=== PATIENT | female | born 1935 | race Asian ===

== ENCOUNTER → 2017-10-10 13:49 | Outpatient (CLI) | payer MEDICARE, SELFPAY ==
[2017-10-10 15:10] LABS: BUN Creatinine Ratio 28.3 (6-22); Blood Urea Nitrogen 34 mg/dL (7-17); Calcium 9.8 mg/dL (8.4-10.2); Carbon Dioxide 23 mmol/L (22-32); Chloride 107 mmol/L (98-107); Estimated Glomerular Filt Rate 43.1 mL/min (>60); Glucose 75 mg/dL (80-110); HEMOLYSIS 47 (0-50); Potassium 4.7 mmol/L (3.4-5.1); Sodium 142 mmol/L (137-145)
[2017-10-14 04:17] LABS: QuantiFERON TB Positive (Negative)
== END ==
PROVIDERS: Visit Provider Internal Medicine
DX: R63.4 Abnormal weight loss (principal); N18.3 Chronic kidney disease, stage 3 (moderate)
CPT/HCPCS: 36415; 80048; 86480

== ENCOUNTER → 2017-10-14 16:50 | Outpatient (CLI) | payer MEDICARE, SELFPAY ==
--- NOTE | 2017-10-14 16:56 | DI.RAD.S_ITS ---
PROCEDURE: XR CHEST 2V INDICATIONS: weight loss TECHNIQUE: 2 views of the chest were acquired. COMPARISON: [facility], , CHEST 1 VIEW, 09/05/2012, 9:33. FINDINGS: Surgical changes and devices: Cardiac pacemaking device and dual chamber leads normal. Lungs and pleura: No pleural effusions or pneumothorax. Lungs are free of mass or pneumonia there is chronic interstitial prominence. Mediastinum: Mediastinal contours are normal. Heart size is normal. Bones and chest wall: No suspicious bony abnormalities. Soft tissues appear unremarkable. IMPRESSION: No pneumonia or mass seen, source of weight loss is not found. Pacemaker and leads normal. Dictated by: Johnson Sumner M.D. on 10/14/2017 at 17:43 Approved by: Johnson Sumner M.D. on 10/14/2017 at 17:44
== END ==
PROVIDERS: PCP Family Medicine; Visit Provider Internal Medicine
DX: R63.4 Abnormal weight loss (principal); Z95.0 Presence of cardiac pacemaker
CPT/HCPCS: 71046

== ENCOUNTER → 2018-01-09 10:02 | Outpatient (CLI) | payer MEDICARE, SELFPAY ==
[2018-01-09 11:06] LABS: Lithium 0.8 mmol/L (0.6-1.2)
[2018-01-09 11:11] LABS: BUN Creatinine Ratio 24.7 (6-22); Blood Urea Nitrogen 37 mg/dL (7-17); Calcium 10.2 mg/dL (8.4-10.2); Carbon Dioxide 26 mmol/L (22-32); Chloride 110 mmol/L (98-107); Estimated Glomerular Filt Rate 33.3 mL/min (>60); Glucose 91 mg/dL (80-110); HEMOLYSIS < 15 (0-50); Potassium 5.1 mmol/L (3.4-5.1); Sodium 146 mmol/L (137-145)
== END ==
PROVIDERS: PCP Family Medicine; Visit Provider Internal Medicine
DX: F31.9 Bipolar disorder, unspecified (principal); N18.3 Chronic kidney disease, stage 3 (moderate); R63.4 Abnormal weight loss
CPT/HCPCS: 36415; 80048; 80178

== ENCOUNTER → 2018-01-16 11:40 | Outpatient (CLI) | payer MEDICARE, SELFPAY ==
[2018-01-16 12:32] LABS: Bacteria Urine None Seen
[2018-01-16 12:42] LABS: Appearance Urine UA CLEAR; Bilirubin Urine UA NEGATIVE (NEGATIVE); Color Urine UA YELLOW; Glucose Urine UA NEGATIVE (Normal); Ketones Urine UA NEGATIVE (NEGATIVE); Leukocyte Esterase Urine UA NEGATIVE (NEGATIVE); Nitrite Urine UA Negative (Negative); Occult Blood Urine UA 1+ (Negative); Protein Urine UA NEGATIVE (Negative); Urobilinogen Urine UA 0.2 E.U./dL (0.2)
[2018-01-16 12:52] LABS: Culture Indicated Urine Cult Not Indicated; RBC Urine 1-5/HPF (0-5/HPF); Squamous Epithelial Cell Urine 0-1 /HPF; WBC Urine 0-1/HPF (0-5/HPF)
[2018-01-16 13:12] LABS: BUN Creatinine Ratio 24.3 (6-22); Blood Urea Nitrogen 34 mg/dL (7-17); Carbon Dioxide 29 mmol/L (22-32); Chloride 107 mmol/L (98-107); Estimated Glomerular Filt Rate 36.1 mL/min (>60); Glucose 93 mg/dL (80-110); HEMOLYSIS < 15 (0-50); Potassium 4.6 mmol/L (3.4-5.1); Sodium 144 mmol/L (137-145)
[2018-01-16 16:09] LABS: Creatinine Urine Random 81.7 mg/dL
[2018-01-16 16:13] LABS: Microalbumin Urine Random 0.9 mg/dL (0-1.6)
== END ==
PROVIDERS: PCP Family Medicine; Visit Provider Internal Medicine
DX: N28.9 Disorder of kidney and ureter, unspecified (principal)
CPT/HCPCS: 36415; 80048; 81001; 82043; 82570

== ENCOUNTER → 2018-01-22 08:03 | Outpatient (CLI) | payer MEDICARE, SELFPAY ==
--- NOTE | 2018-01-22 08:05 | DI.US.S_ITS ---
PROCEDURE: US RENAL COMPLETE INDICATIONS: DECREASED KIDNEY FUNCTION TECHNIQUE: Real-time scanning was performed of the kidneys and bladder, with image documentation. COMPARISON: None. FINDINGS: Kidneys: Kidneys are normal in size. Right kidney measures 8.6 cm long; left kidney measures 9.7 cm long. Right renal cortical thickness is 1.4 cm; left renal cortical thickness is 1.6 cm. Renal cortical echotexture is normal. No hydronephrosis or nephrolithiasis. No suspicious solid mass lesions. At the superior pole of the right kidney, there is a 3.1 cm simple appearing cyst seen. Bladder: Pre-void bladder volume is 216 mL. Post-void residual is 0 mL. Pre-void images demonstrate no intraluminal masses or stones. On pre-void images, neither of the ureteral jets are noted with color Doppler interrogation. (Of note, ureteral jets may not be detectable in up to 25% of cases due to insufficient differences in specific gravity between ureteral and bladder urine). Miscellaneous: No free pelvic fluid. IMPRESSION: Unremarkable renal ultrasound, without hydronephrosis. Incidental note is made of 3.1 centimeter cyst at the superior pole the right kidney. Dictated by: Cisco Don M.D. on 01/22/2018 at 8:30 Approved by: Cisco Don M.D. on 01/22/2018 at 8:32
== END ==
PROVIDERS: PCP Family Medicine; Visit Provider Internal Medicine
DX: N28.1 Cyst of kidney, acquired (principal)
CPT/HCPCS: 76770

== ENCOUNTER → 2018-02-03 15:05 | Outpatient (CLI) | payer MEDICARE, SELFPAY ==
[2018-02-03 17:56] LABS: INR 2.3 (0.9-1.3); Prothrombin Time 24.7 SECONDS (10.1-12.7)
== END ==
PROVIDERS: PCP Family Medicine; Visit Provider Family Medicine
DX: I48.2 Chronic atrial fibrillation (principal)
CPT/HCPCS: 36415; 85610

== ENCOUNTER 2018-06-08 08:38 | Inpatient (IN) | payer MEDICARE, SELFPAY ==
[2018-06-08] VITALS (11 sets, daily range): BP systolic 95–123; BP diastolic 55–85; PULSE 60–69; RESP 11–21; TEMP 36.8–37.6; O2SAT 93–100; BMI 17.4
--- NOTE | 2018-06-08 08:45 | DI.RAD.S_ITS ---
PROCEDURE: XR CHEST 1V INDICATIONS: confusion TECHNIQUE: One view of the chest was acquired. COMPARISON: [facility], CR, XR CHEST 2V, 10/14/2017, 16:36. FINDINGS: Surgical changes and devices: Pacemaker. Lungs and pleura: Lungs are clear. No pleural effusions or pneumothorax. Mediastinum: Mediastinal contours appear normal. Heart size is normal. Bones and chest wall: No suspicious bony lesions. Overlying soft tissues appear unremarkable. IMPRESSION: No acute pulmonary process. Dictated by: Sherin Stearns M.D. on 06/08/2018 at 9:30 Approved by: Sherin Stearns M.D. on 06/08/2018 at 9:30
--- NOTE | 2018-06-08 08:45 | DI.CT.S_ITS ---
PROCEDURE: CT HEAD/BRAIN WO CON INDICATIONS: decreased responsivness on coumadin TECHNIQUE: Noncontrast 4.5 mm thick angled axial sections acquired from the foramen magnum to the vertex, with coronal and sagittal reformats. For radiation dose reduction, the following was used: automated exposure control, adjustment of mA and/or kV according to patient size. COMPARISON: [facility], CT, HEAD WITHOUT CONTRAST, 07/18/2017, 8:51. FINDINGS: Image quality: Excellent. CSF spaces: Basal cisterns are patent. No extra-axial fluid collections. The ventricles are symmetric in size and shape. Brain: No intracranial bleeds or masses. There is cerebral volume loss for age, with resultant ventricular and sulcal prominence. There are periventricular and deep white matter chronic small vessel ischemic changes. There is intracranial internal carotid artery atherosclerosis. Skull and face: Calvarium and visualized facial bones appear intact, without suspicious lesions. Sinuses: Visualized sinuses demonstrate minimal scattered ethmoid and maxillary mucosal thickening. IMPRESSION: 1. No acute intracranial process. 2. Moderate atrophy and chronic microvascular ischemic changes. Dictated by: Sherin Stearns M.D. on 06/08/2018 at 9:25 Approved by: Sherin Stearns M.D. on 06/08/2018 at 9:27
--- NOTE | 2018-06-08 08:53 | ED.NEUROSD ---
HPI - Neuro Symptoms/Deficit General Chief Complaint: Neuro Symptoms/Deficit Stated Complaint: thinks stroke Time Seen by Provider: 06/08/18 08:42 Source: family Mode of arrival: wheelchair Limitations: altered mental status History of Present Illness HPI Narrative: Patient is an 83-year-old female is found with decreased responsiveness. she has past medical history of pacemaker on Coumadin and bipolar on lithium both have been stable and controlled. She was last seen normal at 9:00 p.m.. This morning she was found staring at the sink with running water. His she would has been very rigid is no facial drooping she is not responsive. she normally is able to help get herself dressed, able to communicate but does need some assistance with daily living activities. She has not had fever. According to family she was normal yesterday. 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 According to daughter at last time this happened it was a UTI and took some time to find it. Family also notes that she is typically a very clean and tidy they did find stool in the microwave and all over the room very abnormal for her. On Anticoagulants: No Related Data Home Medications Medication Instructions Recorded Confirmed metoprolol succinate ER 25 mg 25 mg PO DAILY 10/09/17 06/08/18 tablet,extended release 24 hr Previous Rx's Medication Instructions Recorded warfarin 2 mg tablet 2 mg PO QWEEK #90 tab 10/14/17 montelukast 10 mg tablet 10 mg PO QPM #90 tab 01/09/18 lithium carbonate 300 mg capsule 300 mg PO Q DAY #90 cap 05/26/18 Allergies Allergy/AdvReac Type Severity Reaction Status Date / Time aspirin [ASPIRIN] Allergy Unknown Verified 06/08/18 08:50 Penicillins [PENICILLINS] Allergy Unknown UNKNOWN Verified 06/08/18 08:50 Review of Systems Review of Systems ROS Unobtainable: Unobtainable due to medical condition [facility] Medical History Adverse drug effect (Chronic) Ankle pain (Chronic) Asthma (Chronic ~1975) Atrial fibrillation (Chronic 2012) Chronic cough (Chronic) Hayfever (Chronic ~1975) Hearing loss (Chronic ~1989) History of recurrent ear infection (Chronic) Hyperlipidemia (Chronic) Osteoporosis (Chronic) Pacemaker (Chronic 2012) Recurrent sinusitis (Chronic) Tinnitus (Chronic) Bipolar disorder (Resolved 1983) Cataract (Resolved 2013) Chicken pox (Resolved) Measles (Resolved) Ruptured tympanic membrane (Resolved) Stroke (Resolved 2012) Surgical History Anesthesia (Resolved) History of cataract removal with insertion of prosthetic lens (Resolved 2013) History of endoscopic sinus surgery (Resolved 1989) History of nasal polypectomy (Resolved 1982) History of right mastoidectomy (Resolved 1996) Presence of cardiac pacemaker (Resolved 2012) Status post myringotomy with insertion of tube (Resolved 2008) Family History Brother Age: 78 Heart disease Mother Stomach disease Heart problem Sister Age: 86 A-fib Sister Age: 84 A-fib Father Peritonitis Social History Smoking Status: Never smoker Family History Brother Age: 78 Heart disease Mother Stomach disease Heart problem Sister Age: 86 A-fib Sister Age: 84 A-fib Father Peritonitis Social History household members: family and children Smoking Status: Never smoker alcohol intake: never Exam Initial Vital Signs Initial Vital Signs: Vital Signs Temperature 99.1 F 06/08/18 08:38 Pulse Rate 60 06/08/18 08:38 Respiratory Rate 11 L 06/08/18 08:38 Blood Pressure 111/61 06/08/18 08:38 Pulse Oximetry 97 06/08/18 08:38 Const General: cooperative and frail appearing Orientation: alert HENMT Head: normal to inspection Eyes General: appearance normal, both eyes and all related structures Neck Neck: normal visual inspection and full ROM Chest Chest: normal inspection of the chest Resp Effort & Inspection: normal respiratory effort Auscultation: clear to auscultation bilaterally, no rales, no rhonchi and no wheezes Cardio Rate: regular rate Heart Sounds: S1 normal and S2 normal GI Palpation: soft, No firm and No guarding Auscultation: normal bowel sounds Skin General: no rashes or lesions noted, No jaundice and No petechiae Neuro General: alert and awake Cranial Nerves: CN's II-XI intact bilaterally Cognition: abnormal cognition ( not following commands) Speech: abnormal speech ( not speaking) Other: both legs drift to gurney Scores GCS [place] coma scale eye opening: Spontaneous [place]i coma scale verbal response: Sounds [place]i coma scale motor response: Normal flexion [place] coma scale total score: 10 Course Orders Ordered: ED Orders 06/08/18 08:43 EKG-12 Lead Stat 06/08/18 08:45 CT head/brain wo con Stat XR chest 1V Stat 06/08/18 09:09 Influenza A and B by PCR Rapid Stat 06/08/18 09:20 Complete Blood Count AUTO DIFF Stat Comprehensive Metabolic Panel Stat Lactate (Lactic Acid) Stat [place] Stat Partial Thromboplastin Time Stat Prolactin Stat Prothrombin Time INR Stat Thyroid Stimulating Hormone Stat Troponin & CK Cardiac Panel Stat 06/08/18 09:50 Blood Culture Stat 06/08/18 10:46 Urinalysis and Microscopic Stat Urine Culture Stat Sodium Chloride (Normal Saline 0.9%) 1,000 mls @ 150 mls/hr IV CONT CLARA Last Infusion: 06/08/18 11:40 Dose: 150 mls/hr Admin: 06/08/18 09:29 Dose: 150 mls/hr Vital Signs - 8 hr 06/08/18 08:38 06/08/18 09:28 06/08/18 10:30 Temperature 99.1 F Pulse Rate 60 60 60 Respiratory Rate 11 L 16 21 Blood Pressure 111/61 Blood Pressure [Left Arm] 110/55 L 114/55 L Pulse Oximetry 97 95 98 06/08/18 11:15 06/08/18 11:30 Temperature 98.3 F Pulse Rate 66 67 Respiratory Rate 16 12 Blood Pressure 122/85 Blood Pressure [Left Arm] 118/58 L Pulse Oximetry 97 100 MDM - Neuro Symptoms/Deficit Lab Data Attestation: I reviewed the patient's lab results. Result diagrams: 06/08/18 09:20 06/08/18 09:20 Lab Results 06/08/18 06/08/18 06/08/18 Range/Units 09:09 09:20 09:20 WBC 5.8 (4.5-11.0) X10^3/uL RBC 3.78 L (4.0-5.2) X10^6/uL Hgb 11.6 L (12.0-16.0) g/dL Hct 35.9 L (36-46) % MCV 94.9 (80-100) fL MCH 30.7 (26-34) PG MCHC 32.3 (30-36) % RDW 13.9 (11.6-14.8) % Plt Count 166 (150-400) X10^3/uL Neut % (Auto) 85.8 H (50-75) % Lymph % (Auto) 8.2 L (25-40) % [place] % (Auto) 4.6 (3-14) % Eos % (Auto) 0.6 L (2-4) % Baso % (Auto) 0.8 (0-2) % Neut # (Auto) 5000 (4943-5077) /uL Lymph # (Auto) 500 L (4594-2943) /uL [place] # (Auto) 300 (0-900) /uL Eos # (Auto) 0 (0-450) /uL Baso # (Auto) 0 (0-100) /uL PT 33.3 H (10.1-12.7) SECONDS INR 2.8 H (0.9-1.3) APTT 41 H (26.4-36.2) SECONDS Sodium (137-145) mmol/L Potassium (3.4-5.1) mmol/L Chloride (98-107) mmol/L Carbon Dioxide (22-32) mmol/L BUN (7-17) mg/dL Creatinine (0.52-1.04) mg/dL Estimated GFR (>60) mL/min BUN/Creatinine Ratio (6-22) Glucose (80-110) mg/dL Lactate (0.7-2.1) mmol/L Calcium (8.4-10.2) mg/dL Total Bilirubin (0.2-1.3) mg/dL AST (14-36) IU/L ALT (9-52) IU/L Alkaline Phosphatase (38-126) U/L Total Creatine Kinase (30-135) U/L CK-MB (CK-2) CK-MB (CK-2) Rel Index Troponin I (0.01-0.034) ng/mL Total Protein (6.3-8.2) g/dL Albumin (3.5-5.0) g/dL Globulin (1.7-4.1) g/dL Albumin/Globulin Ratio (1.0-2.8) TSH (0.47-4.68) uIU/mL Prolactin (3.0-18.6) ng/mL Urine Color Urine Appearance Urine pH (4.5-8.0) Ur Specific [place] (1.000-1.035) Urine Protein (Negative) Urine Glucose (UA) (Negative) g/dL Urine Ketones (NEGATIVE) Urine Occult Blood (Negative) Urine Nitrate (Negative) Urine Bilirubin (NEGATIVE) Urine Urobilinogen (0.2) E.U./dL Ur Leukocyte Esterase (NEGATIVE) Urine RBC (0-5/HPF) Urine WBC (0-5/HPF) Urine Bacteria (None) Ur Culture Indicated? [place] (0.6-1.2) mmol/L Influenza A & B (PCR) Negative (Negative) 06/08/18 06/08/18 06/08/18 Range/Units 09:20 09:20 09:20 WBC (4.5-11.0) X10^3/uL RBC (4.0-5.2) X10^6/uL Hgb (12.0-16.0) g/dL Hct (36-46) % MCV (80-100) fL MCH (26-34) PG MCHC (30-36) % RDW (11.6-14.8) % Plt Count (150-400) X10^3/uL Neut % (Auto) (50-75) % Lymph % (Auto) (25-40) % [place] % (Auto) (3-14) % Eos % (Auto) (2-4) % Baso % (Auto) (0-2) % Neut # (Auto) (5819-2258) /uL Lymph # (Auto) (7873-4588) /uL [place] # (Auto) (0-900) /uL Eos # (Auto) (0-450) /uL Baso # (Auto) (0-100) /uL PT (10.1-12.7) SECONDS INR (0.9-1.3) APTT (26.4-36.2) SECONDS Sodium 139 (137-145) mmol/L Potassium 4.7 (3.4-5.1) mmol/L Chloride 107 (98-107) mmol/L Carbon Dioxide 24 (22-32) mmol/L BUN 41 H (7-17) mg/dL Creatinine 1.40 H (0.52-1.04) mg/dL Estimated GFR 36.0 L (>60) mL/min BUN/Creatinine Ratio 29.3 H (6-22) Glucose 112 H (80-110) mg/dL Lactate 2.0 (0.7-2.1) mmol/L Calcium 9.6 (8.4-10.2) mg/dL Total Bilirubin 0.4 (0.2-1.3) mg/dL AST 34 (14-36) IU/L ALT 37 (9-52) IU/L Alkaline Phosphatase 53 (38-126) U/L Total Creatine Kinase 66 (30-135) U/L CK-MB (CK-2) TNP CK-MB (CK-2) Rel Index TNP Troponin I < 0.012 (0.01-0.034) ng/mL Total Protein 7.5 (6.3-8.2) g/dL Albumin 4.2 (3.5-5.0) g/dL Globulin 3.3 (1.7-4.1) g/dL Albumin/Globulin Ratio 1.3 (1.0-2.8) TSH 2.55 (0.47-4.68) uIU/mL Prolactin 11.9 (3.0-18.6) ng/mL Urine Color Urine Appearance Urine pH (4.5-8.0) Ur Specific [place] (1.000-1.035) Urine Protein (Negative) Urine Glucose (UA) (Negative) g/dL Urine Ketones (NEGATIVE) Urine Occult Blood (Negative) Urine Nitrate (Negative) Urine Bilirubin (NEGATIVE) Urine Urobilinogen (0.2) E.U./dL Ur Leukocyte Esterase (NEGATIVE) Urine RBC (0-5/HPF) Urine WBC (0-5/HPF) Urine Bacteria (None) Ur Culture Indicated? [place] (0.6-1.2) mmol/L Influenza A & B (PCR) (Negative) 06/08/18 06/08/18 Range/Units 09:20 10:46 WBC (4.5-11.0) X10^3/uL RBC (4.0-5.2) X10^6/uL Hgb (12.0-16.0) g/dL Hct (36-46) % MCV (80-100) fL MCH (26-34) PG MCHC (30-36) % RDW (11.6-14.8) % Plt Count (150-400) X10^3/uL Neut % (Auto) (50-75) % Lymph % (Auto) (25-40) % [place] % (Auto) (3-14) % Eos % (Auto) (2-4) % Baso % (Auto) (0-2) % Neut # (Auto) (2802-8962) /uL Lymph # (Auto) (0055-0303) /uL [place] # (Auto) (0-900) /uL Eos # (Auto) (0-450) /uL Baso # (Auto) (0-100) /uL PT (10.1-12.7) SECONDS INR (0.9-1.3) APTT (26.4-36.2) SECONDS Sodium (137-145) mmol/L Potassium (3.4-5.1) mmol/L Chloride (98-107) mmol/L Carbon Dioxide (22-32) mmol/L BUN (7-17) mg/dL Creatinine (0.52-1.04) mg/dL Estimated GFR (>60) mL/min BUN/Creatinine Ratio (6-22) Glucose (80-110) mg/dL Lactate (0.7-2.1) mmol/L Calcium (8.4-10.2) mg/dL Total Bilirubin (0.2-1.3) mg/dL AST (14-36) IU/L ALT (9-52) IU/L Alkaline Phosphatase (38-126) U/L Total Creatine Kinase (30-135) U/L CK-MB (CK-2) CK-MB (CK-2) Rel Index Troponin I (0.01-0.034) ng/mL Total Protein (6.3-8.2) g/dL Albumin (3.5-5.0) g/dL Globulin (1.7-4.1) g/dL Albumin/Globulin Ratio (1.0-2.8) TSH (0.47-4.68) uIU/mL Prolactin (3.0-18.6) ng/mL Urine Color Yellow Urine Appearance Clear Urine pH 6.5 (4.5-8.0) Ur Specific [place] 1.010 (1.000-1.035) Urine Protein Negative (Negative) Urine Glucose (UA) Negative (Negative) g/dL Urine Ketones Negative (NEGATIVE) Urine Occult Blood 1+ H (Negative) Urine Nitrate Negative (Negative) Urine Bilirubin Negative (NEGATIVE) Urine Urobilinogen 0.2 (0.2) E.U./dL Ur Leukocyte Esterase Negative (NEGATIVE) Urine RBC 0-1/hpf (0-5/HPF) Urine WBC None seen (0-5/HPF) Urine Bacteria None seen (None) Ur Culture Indicated? Culture not indicate [place] 1.1 (0.6-1.2) mmol/L Influenza A & B (PCR) (Negative) Point of Care Testing Glucose POC [address] scan - head: Radiologist's impression: PROCEDURE: CT HEAD/BRAIN WO CON INDICATIONS: decreased responsivness on coumadin TECHNIQUE: Noncontrast 4.5 mm thick angled axial sections acquired from the foramen magnum to the vertex, with coronal and sagittal reformats. For radiation dose reduction, the following was used: automated exposure control, adjustment of mA and/or kV according to patient size. COMPARISON: [facility], CT, HEAD WITHOUT CONTRAST, 07/18/2017, 8:51. FINDINGS: Image quality: Excellent. CSF spaces: Basal cisterns are patent. No extra-axial fluid collections. The ventricles are symmetric in size and shape. Brain: No intracranial bleeds or masses. There is cerebral volume loss for age, with resultant ventricular and sulcal prominence. There are periventricular and deep white matter chronic small vessel ischemic changes. There is intracranial internal carotid artery atherosclerosis. Skull and face: Calvarium and visualized facial bones appear intact, without suspicious lesions. Sinuses: Visualized sinuses demonstrate minimal scattered ethmoid and maxillary mucosal thickening. IMPRESSION: 1. No acute intracranial process. 2. Moderate atrophy and chronic microvascular ischemic changes. Dictated by: Sherin Stearns M.D. on 06/08/2018 at 9:25 Chest x-ray: Radiologist's impression: PROCEDURE: XR CHEST 1V INDICATIONS: confusion TECHNIQUE: One view of the chest was acquired. COMPARISON: [facility], CR, XR CHEST 2V, 10/14/2017, 16:36. FINDINGS: Surgical changes and devices: Pacemaker. Lungs and pleura: Lungs are clear. No pleural effusions or pneumothorax. Mediastinum: Mediastinal contours appear normal. Heart size is normal. Bones and chest wall: No suspicious bony lesions. Overlying soft tissues appear unremarkable. IMPRESSION: No acute pulmonary process. Dictated by: Sherin Stearns M.D. on 06/08/2018 at 9:30 ECG Data Attestation: I personally reviewed and interpreted this ECG as follows: Prior ECG tracings: available for review Interpretation: paced rhythm rate 60 WI interval [address] changes no T-wave inversions similar to priors MDM Narrative Medical decision making narrative: patient does not have any focal deficits. She is not at baseline. Has no source of infection. She does have slightly elevated lactate of 2.0. Possible TIA she is starting to come around and starting to talk a little bit but family states she has not yet at baseline. Dr. Leslie updated on patient's symptoms and test results agrees with admission. Discharge Plan Departure Patient Disposition: Admitted as Observation Clinical Impression: Toxic metabolic encephalopathy Discharge Date/Time: 06/08/18 11:41 Interventions: ED Discharge Assessment Last Done: 06/08/18 11:40 Admit Date/Time: 06/08/18 10:58 Admit Provider: Denise Leslie
[2018-06-08 09:28] LABS: Influenza A and B by PCR Rapid Negative (Negative)
[2018-06-08] MEDS: SODIUM CHLORIDE 0.9% 1,000 ML 150 ML IV (09:29)
[2018-06-08 09:37] LABS: Add Manual Diff / Slide Review NO; Basophils Absolute Auto 0 /uL (0-100); Basophils Percent Auto 0.8 % (0-2); Eosinophils Absolute Auto 0 /uL (0-450); Eosinophils Percent Auto 0.6 % (2-4); Hematocrit 35.9 % (36-46); Hemoglobin 11.6 g/dL (12.0-16.0); Lymphocytes Absolute Auto 500 /uL (1100-4500); Lymphocytes Percent Auto 8.2 % (25-40); Mean Corpuscular HGB Conc 32.3 % (30-36); Mean Corpuscular Hemoglobin 30.7 PG (26-34); Mean Corpuscular Volume 94.9 fL (80-100); Monocytes Absolute Auto 300 /uL (0-900); Monocytes Percent Auto 4.6 % (3-14); Neutrophils Absolute Auto 5000 /uL (1500-7000); Neutrophils Percent Auto 85.8 % (50-75); Platelet Count 166 X10^3/uL (150-400); Red Blood Cell Count 3.78 X10^6/uL (4.0-5.2); Red Cell Distribution Width 13.9 % (11.6-14.8); White Blood Cell Count 5.8 X10^3/uL (4.5-11.0)
[2018-06-08 09:45] LABS: INR 2.8 (0.9-1.3); Prothrombin Time 33.3 SECONDS (10.1-12.7)
[2018-06-08 09:47] LABS: PTT Partial Thromboplastin Tim 41 SECONDS (26.4-36.2)
[2018-06-08 09:49] LABS: Alanine Aminotransferase 37 IU/L (9-52); Albumin 4.2 g/dL (3.5-5.0); Albumin Globulin Ratio 1.3 (1.0-2.8); Alkaline Phosphatase 53 U/L (38-126); Aspartate Aminotransferase 34 IU/L (14-36); BUN Creatinine Ratio 29.3 (6-22); Bilirubin Total 0.4 mg/dL (0.2-1.3); Blood Urea Nitrogen 41 mg/dL (7-17); Calcium 9.6 mg/dL (8.4-10.2); Carbon Dioxide 24 mmol/L (22-32); Chloride 107 mmol/L (98-107); Creatine Kinase 66 U/L (30-135); Globulin 3.3 g/dL (1.7-4.1); Glucose 112 mg/dL (80-110); HEMOLYSIS < 15 (0-50); Potassium 4.7 mmol/L (3.4-5.1); Sodium 139 mmol/L (137-145); Total Protein 7.5 g/dL (6.3-8.2)
[2018-06-08 09:53] LABS: Lithium 1.1 mmol/L (0.6-1.2)
[2018-06-08 10:00] LABS: Troponin I < 0.012 ng/mL (0.01-0.034)
[2018-06-08 10:05] LABS: Prolactin 11.9 ng/mL (3.0-18.6)
[2018-06-08 10:27] LABS: Thyroid Stimulating Hormone 2.55 uIU/mL (0.47-4.68)
--- NOTE | 2018-06-08 10:58 | PC.NURSE ---
pt acting like she needed to use the bathroom, this is just after she has been cathed for urine. She was able to stand by commode but wouldn't sit down on commode. even with promting. family in room to help assist but she wouldn't sit down so we got her back into the gurney and gave her some depends to wear. She did say it hurts but couldn't localize it. Updated her nurse Carisa about what Rachel and I did assisting her.
[2018-06-08 11:00] LABS: Bacteria Urine None Seen; WBC Urine None Seen (0-5/HPF)
[2018-06-08 11:07] LABS: Appearance Urine UA CLEAR; Bilirubin Urine UA NEGATIVE (NEGATIVE); Color Urine UA YELLOW; Glucose Urine UA NEGATIVE (Negative); Ketones Urine UA NEGATIVE (NEGATIVE); Leukocyte Esterase Urine UA NEGATIVE (NEGATIVE); Nitrite Urine UA NEGATIVE (Negative); Occult Blood Urine UA 1+ (Negative); Protein Urine UA NEGATIVE (Negative); Urobilinogen Urine UA 0.2 E.U./dL (0.2); pH Urine UA 6.5 (4.5-8.0)
[2018-06-08 11:08] LABS: RBC Urine 0-1/HPF (0-5/HPF)
--- NOTE | 2018-06-08 12:10 | PC.NURSE ---
pt awake, mostly nonverbal. ambulated to bathroom with 1 person assist. pt would not sit and urinated onto her legs and floor. IVF infusing at 150ml/hr. career and guidance counselor at bedside.
--- NOTE | 2018-06-08 14:10 | PM.HP.1 ---
History of Present Illness Date Patient Seen: 06/08/18 Chief complaint: thinks stroke Narrative: The patient is an 83-year-old female with a history of dementia, bipolar affective disorder, chronic atrial fibrillation who was in her usual state of health until this morning. According to the daughter the patient is able to get up and ambulate without difficulty. She is typically fairly verbal. She went to bed and was last seen normal at 9:00 p.m. last night. This morning when her daughter went to see her mom she found her standing over the sink with 1 running water. In addition there was hard formed stool found in her mother's room. There was stool in the bathroom and in the couch and throughout the facility. The patient is essentially nonverbal at this point. She is unable to provide any history. According to the daughter she has a cough each morning which is not unusual. She has had no fever or chills. She has had no nausea vomiting or diarrhea. Her mom has not complained of any pain. The patient was previously hospitalized years ago for acute encephalopathy felt to be due to a urinary tract infection. Urine was obtained in the emergency department which was negative. patient did have an evaluation to include a head CT which was unremarkable. Chest x-ray was negative. The patient does have difficulty following commands. It she is admitted to the hospital at this time for further evaluation of acute encephalopathy. Patient History Medical History Adverse drug effect (Chronic) Ankle pain (Chronic) Asthma (Chronic ~1975) Atrial fibrillation (Chronic 2012) Chronic cough (Chronic) Hayfever (Chronic ~1975) Hearing loss (Chronic ~1989) History of recurrent ear infection (Chronic) Hyperlipidemia (Chronic) Osteoporosis (Chronic) Pacemaker (Chronic 2012) Recurrent sinusitis (Chronic) Tinnitus (Chronic) Bipolar disorder (Resolved 1983) Cataract (Resolved 2013) Chicken pox (Resolved) Measles (Resolved) Ruptured tympanic membrane (Resolved) Stroke (Resolved 2012) Surgical History Anesthesia (Resolved) History of cataract removal with insertion of prosthetic lens (Resolved 2013) History of endoscopic sinus surgery (Resolved 1989) History of nasal polypectomy (Resolved 1982) History of right mastoidectomy (Resolved 1996) Presence of cardiac pacemaker (Resolved 2012) Status post myringotomy with insertion of tube (Resolved 2008) Family History Brother Age: 78 Heart disease Mother Stomach disease Heart problem Sister Age: 86 A-fib Sister Age: 84 A-fib Father Peritonitis Social History household members: family and children Smoking Status: Never smoker alcohol intake: never Family & Social History Family History Brother Age: 78 Heart disease Mother Stomach disease Heart problem Sister Age: 86 A-fib Sister Age: 84 A-fib Father Peritonitis Social History: household members family,children Safety & Behavioral: Feels Safe in Current Yes Environment Been Physically Hurt or No Threatened By a Person Suicide Plan Description No Plan Tobacco & Substance use: Smoking Status Never smoker alcohol intake never Substance Use Type does not use Meds Home Medications Medication Instructions Recorded Confirmed Type metoprolol succinate ER 25 mg 25 mg PO DAILY 10/09/17 06/08/18 History tablet,extended release 24 hr warfarin 2 mg tablet 2 mg PO QWEEK #90 tab 10/14/17 06/08/18 Rx montelukast 10 mg tablet 10 mg PO QPM #90 tab 01/09/18 06/08/18 Rx lithium carbonate 300 mg capsule 300 mg PO Q DAY #90 cap 05/26/18 06/08/18 Rx Allergies Allergy/AdvReac Type Severity Reaction Status Date / Time aspirin [ASPIRIN] Allergy Unknown Verified 06/08/18 08:50 Penicillins [PENICILLINS] Allergy Unknown UNKNOWN Verified 06/08/18 08:50 Review of Systems Review of Systems unobtainable due to mental status Exam Vital Signs (past 8 hours): - 06/08/18 08:38 06/08/18 09:28 06/08/18 10:30 Temperature 99.1 F Pulse Rate 60 60 60 Respiratory Rate 11 L 16 21 Blood Pressure 111/61 Blood Pressure [Left Arm] 110/55 L 114/55 L Pulse Oximetry 97 95 98 06/08/18 11:15 06/08/18 11:30 Temperature 98.3 F Pulse Rate 66 67 Respiratory Rate 16 12 Blood Pressure 122/85 Blood Pressure [Left Arm] 118/58 L Pulse Oximetry 97 100 Oxygen Delivery Method Room Air Narrative Exam Narrative: Elderly female pleasant and cooperative but obviously confused HEENT: Normocephalic atraumatic: Extraocular muscles are intact: Oropharynx reveals dry mucous membranes: Neck is supple without adenopathy Lungs: Clear to auscultation Confusion cardiac exam: Irregularly irregular normal S1-S2 Abdomen: Soft nontender nondistended no appreciable hepatosplenomegaly Extremities: No edema Neuro exam the patient is awake somewhat respond but is nonverbal. She is able to move all extremities. She does not follow commands. She has no obvious facial asymmetry. Her strength is symmetric. Further exam is somewhat limited by the patient's confusion. At time she is pulling at her IV site. She appears to be confused although cough Objective Labs Result Diagrams: 06/08/18 09:20 06/08/18 09:20 Labs: Laboratory Results - last 24 hr 06/08/18 06/08/18 06/08/18 09:09 09:20 09:20 WBC 5.8 RBC 3.78 L Hgb 11.6 L Hct 35.9 L MCV 94.9 MCH 30.7 MCHC 32.3 RDW 13.9 Plt Count 166 Neut % (Auto) 85.8 H Lymph % (Auto) 8.2 L [place] % (Auto) 4.6 Eos % (Auto) 0.6 L Baso % (Auto) 0.8 Neut # (Auto) 5000 Lymph # (Auto) 500 L [place] # (Auto) 300 Eos # (Auto) 0 Baso # (Auto) 0 PT 33.3 H INR 2.8 H APTT 41 H Sodium Potassium Chloride Carbon Dioxide BUN Creatinine Estimated GFR BUN/Creatinine Ratio Glucose Lactate Calcium Total Bilirubin AST ALT Alkaline Phosphatase Total Creatine Kinase CK-MB (CK-2) CK-MB (CK-2) Rel Index Troponin I Total Protein Albumin Globulin Albumin/Globulin Ratio TSH Prolactin Urine Color Urine Appearance Urine pH Ur Specific [place] Urine Protein Urine Glucose (UA) Urine Ketones Urine Occult Blood Urine Nitrate Urine Bilirubin Urine Urobilinogen Ur Leukocyte Esterase Urine RBC Urine WBC Urine Bacteria Ur Culture Indicated? [place] Influenza A & B (PCR) Negative 06/08/18 06/08/18 06/08/18 09:20 09:20 09:20 WBC RBC Hgb Hct MCV MCH MCHC RDW Plt Count Neut % (Auto) Lymph % (Auto) [place] % (Auto) Eos % (Auto) Baso % (Auto) Neut # (Auto) Lymph # (Auto) [place] # (Auto) Eos # (Auto) Baso # (Auto) PT INR APTT Sodium 139 Potassium 4.7 Chloride 107 Carbon Dioxide 24 BUN 41 H Creatinine 1.40 H Estimated GFR 36.0 L BUN/Creatinine Ratio 29.3 H Glucose 112 H Lactate 2.0 Calcium 9.6 Total Bilirubin 0.4 AST 34 ALT 37 Alkaline Phosphatase 53 Total Creatine Kinase 66 CK-MB (CK-2) TNP CK-MB (CK-2) Rel Index TNP Troponin I < 0.012 Total Protein 7.5 Albumin 4.2 Globulin 3.3 Albumin/Globulin Ratio 1.3 TSH 2.55 Prolactin 11.9 Urine Color Urine Appearance Urine pH Ur Specific [place] Urine Protein Urine Glucose (UA) Urine Ketones Urine Occult Blood Urine Nitrate Urine Bilirubin Urine Urobilinogen Ur Leukocyte Esterase Urine RBC Urine WBC Urine Bacteria Ur Culture Indicated? [place] Influenza A & B (PCR) 06/08/18 06/08/18 09:20 10:46 WBC RBC Hgb Hct MCV MCH MCHC RDW Plt Count Neut % (Auto) Lymph % (Auto) [place] % (Auto) Eos % (Auto) Baso % (Auto) Neut # (Auto) Lymph # (Auto) [place] # (Auto) Eos # (Auto) Baso # (Auto) PT INR APTT Sodium Potassium Chloride Carbon Dioxide BUN Creatinine Estimated GFR BUN/Creatinine Ratio Glucose Lactate Calcium Total Bilirubin AST ALT Alkaline Phosphatase Total Creatine Kinase CK-MB (CK-2) CK-MB (CK-2) Rel Index Troponin I Total Protein Albumin Globulin Albumin/Globulin Ratio TSH Prolactin Urine Color Yellow Urine Appearance Clear Urine pH 6.5 Ur Specific [place] 1.010 Urine Protein Negative Urine Glucose (UA) Negative Urine Ketones Negative Urine Occult Blood 1+ H Urine Nitrate Negative Urine Bilirubin Negative Urine Urobilinogen 0.2 Ur Leukocyte Esterase Negative Urine RBC 0-1/hpf Urine WBC None seen Urine Bacteria None seen Ur Culture Indicated? Culture not indicate [place] 1.1 Influenza A & B (PCR) Assessment & Plan Assessment & Plan narrative: 1. Acute encephalopathy etiology unclear, present on admission. Patient previously has had confusion associated with the urinary tract infection but there is none on exam. Her chest x-ray is negative. She does have a low-grade fever. Will await blood and urine cultures. Will obtain a viral panel for completeness. Influenza is negative. If patient remains confused would recommend MRI of the brain in the morning. 2. Chronic renal insufficiency, present on admission 3. Bipolar affective disorder chronic, present on admission 4. Dementia, chronic, present on 5. Atrial Fibrillation, chronic, present on admission, on coumadin, rate is controlled Plan will continue IV hydration. Will repeat laboratory studies in the morning. Will defer antibiotics at this time. Will await urine and blood cultures. Will check MRI brain tomorrow if she remains confused. No evidence to suggest meningitis. Per the daughter the patient is do not resuscitate and will note that in her record accordingly. Quality VTE Deep Vein Thrombosis/Pulmonary Embolism Present on Admission: No
--- NOTE | 2018-06-08 14:50 | PT.IIE ---
Surgical History (Last Reviewed 06/08/18 @ 14:19 by Denise Leslie MD) Anesthesia (Resolved) History of cataract removal with insertion of prosthetic lens (Resolved 2013) History of endoscopic sinus surgery (Resolved 1989) History of nasal polypectomy (Resolved 1982) History of right mastoidectomy (Resolved 1996) Presence of cardiac pacemaker (Resolved 2012) Status post myringotomy with insertion of tube (Resolved 2008) Medical History (Last Reviewed 06/08/18 @ 14:19 by Denise Leslie MD) Adverse drug effect (Chronic) Ankle pain (Chronic) Asthma (Chronic ~1975) Atrial fibrillation (Chronic 2012) Chronic cough (Chronic) Hayfever (Chronic ~1975) Hearing loss (Chronic ~1989) History of recurrent ear infection (Chronic) Hyperlipidemia (Chronic) Osteoporosis (Chronic) Pacemaker (Chronic 2012) Recurrent sinusitis (Chronic) Tinnitus (Chronic) Bipolar disorder (Resolved 1983) Cataract (Resolved 2013) Chicken pox (Resolved) Measles (Resolved) Ruptured tympanic membrane (Resolved) Stroke (Resolved 2012) Physical Therapy Inpatient Evaluation/Re-Eval M1 PT/OT-IP Prior Functional Status Start: 06/08/18 15:49 Freq: NEEDED Status: Active Protocol: Document 06/08/18 14:50 [facility] (Rec: 06/08/18 16:02 [facility] [id number]) Medical Review Prior Functional Status Medical History Reviewed Yes Mobility and Gait indep. ambulator in and outdoors on gravel road and in yard at home without an assistive device Activities of Daily Living and IADL's indep. ADLs except daughter assists with washing her hair Social History Household Members family children Living Arrangements House Number of Floors (Floors) One Floor Number of Stairs To Enter/Railing? 2 SE R ascending rail. Has living quarters in home with daughter and family, access to BR and bed on one level. Home Environment Standard Height Toilet Additional Social History Comment Pt found at home with increased confusion, stool in sink and throughout room and pt non-verbal which is well below her prior level of function. Pt has a h/o previous UTI with encephalopaty, initial screening negative in urine. CT of head and chest radiograph also negative. Pt has dementia, bipolar disorder and chronic A-fib. Pt also [place]. M2 PT-IP Current Condition Start: 06/08/18 15:49 Freq: NEEDED Status: Active Protocol: Document 06/08/18 14:50 [facility] (Rec: 06/08/18 16:02 [facility] [id number]) Physical Therapy Current Condition Current Condition Evaluation Date 06/08/18 Treatment Diagnosis encephalopathy, impaired activity tolerance and mobility M3 PT-IP Subjective Start: 06/08/18 15:49 Freq: NEEDED Status: Active Protocol: Document 06/08/18 14:50 RCC (Rec: 06/08/18 16:02 RCC [id number]) Subjective Physical Therapy Visit Type Type Initial Evaluation Visit Start Time 14:50 Visit Stop Time 15:30 Total Visit Minutes 40 Number of LACQUER MACHINE FEEDER Visits 0 Physical Therapy Visit Comments Patient Comments pt unable to verbalize much but does shake her head yes to get OOB and states no verbally when asked if she needs to use bathroom. Patient Goals unable to state. Daughter would like pt to get back to her cognitive baseline. M4 PT-IP Mobility and Gait Start: 06/08/18 15:49 Freq: NEEDED Status: Active Protocol: Document 06/08/18 14:50 RCC (Rec: 06/08/18 16:02 [facility] [id number]) PT-Bed Mobility Assessment Supine to Sit Supine to Sit Moderate Assistance 1 Person Assistance Scooting Scooting to Edge of Bed Contact Guard Assistance PT-Transfer Assessment Sit to and From Stand Sit to and from Stand Minimal Assistance 1 Person Assistance Equipment Transfer Assistive Device None Gait Belt Transfers Transfer Destination Chair Transfer Technique Stand Step Pivot Transfer Ability Level of Assist Minimal Assistance Comments Mobility Comments attempted to use FWW, but pt unable to follow commands to keep hands on walker. Used hand-held with Min A for forward progression of gait. Gait Assessment Gait Gait Assistance Required: Minimum Assistance Distance (Feet) 10 Assistive Devices Assistive Device None Gait Belt Gait Deviations General Gait Pattern Decreased Stride Length Decreased Feet Clearance Narrow Based Gait Factors Limiting Gait Function Factors Limiting Gait Function Decreased Activity Tolerance Decreased Strength Difficulty Following Directions Poor Safety Awareness Comments Gait Comments hand held assistance PT-Balance Assessment Sitting Balance and Reactions Static Sitting Balance Ability Good Dynamic Sitting Balance Ability Good Standing Balance and Reactions Static Standing Balance Ability Fair Dynamic Standing Balance Ability Fair Device Used hand held assistance (min A) M5 PT-IP Objective Assessments Start: 06/08/18 15:49 Freq: NEEDED Status: Active Protocol: Document 06/08/18 14:50 RCC (Rec: 06/08/18 16:02 [facility] [id number]) Orientation Orientation/Cognition Level of Alertness Confusional State Comments answers to name but otherwise unable to verbalize much Strength Comments Strength Comments unable to assess d/t cognitive impairment Sensation Assessment Comments Sensation Comments unable to assess d/t cognitive impairment M6 PT-IP Treatment Start: 06/08/18 15:49 Freq: NEEDED Status: Active Protocol: Document 06/08/18 14:50 RCC (Rec: 06/08/18 16:02 [facility] [id number]) Physical Therapy Treatment Education Education Provided Safety Other Treatments Other Treatment Performed daughter instructed to let staff know if she would be out of the room. M7 PT-IP Assessment and Plan Start: 06/08/18 15:49 Freq: NEEDED Status: Active Protocol: Document 06/08/18 14:50 [facility] (Rec: 06/08/18 16:02 [facility] [id number]) PT Summary Assessment and Plan Potential Rehabilitation Potential Good Status of Condition at Evaluation Evolving Summary Impairments Balance Cognition Bed Mobility Transfers Gait Activity Tolerance Assessment Summary Pt with very limited verbal responses this session, but agreeable to get OOB. She was unable to utilize the FWW due to her level of acute confusion and likely also dementia, but able to ambulate a short distance with this PT holding her R hand and using a gait belt to assist with weight shifting. Pt slighlty more alert after mobility, was able to sit in chair with verbal and tactile cuing. At this time, pt is not safe to return home as her confusion severely impairs her safety awarness. She has assistance at home, but not 05/11 as pt was very indep. prior to this episode including walking outdoors on gravel on the family property. Pt will require further ongoing physical therapy during this episode of care to continue to progress her mobility and assess safety of functional activities. If pt improves mentally, she may be able to return home but if she is unable to meet below goals, then it may be beneficial and promote a safe d/c if pt to d/ c to SNF rehabilitation to regain functional independence . Goals Bed Mobility Goal Independent Transfer Goal Independent Gait Goal Standby Assistance Gait Distance 300 Other Goals up/down 2 steps with R rail and CGA. Days to Meet Goals 5 Frequency of Treatment Frequency Of Treatment Twice a Day Treatment Plan Physical Therapy Treatment Plan Bed Mobility Training Transfer Training Gait Training Therapeutic Exercise Balance Retraining Discharge Planning Neuromuscular Re-ed Other Recommendations and Next Treatment progress gait and mobility as Focus tolerated, continue to assess safety awareness Recommendations To Nursing Amount of Assist Needed 2 Person Assist Discharge Recommendations PT Discharge Recommendations Home with 24/7 Assist Home Health SNF Rehab Other Discharge Recommendations home with 24/7 assist and HH PT/OT vs SNF, requires further ongoing assessment.
[2018-06-08 15:25] LABS: Procalcitonin < 0.05 ng/mL (<0.5)
[2018-06-08] MEDS: DOCUSATE 100 MG CAPSULE PO (17:15)
[2018-06-08] MEDS: SODIUM CHLORIDE 0.9% 1,000 ML 100 ML IV (17:42)
[2018-06-08] MEDS: METOPROLOL ER 25 MG TABLET PO (19:20)
[2018-06-08] MEDS: LITHIUM 300 MG IR CAPSULE PO (19:26)
[2018-06-08] MEDS: MONTELUKAST 10 MG TABLET PO (19:26)
[2018-06-08] MEDS: WARFARIN 2 MG TABLET PO (19:26)
[2018-06-08] MEDS: SENNOSIDES 8.6 MG TABLET 17.2 MG PO (19:27)
[2018-06-08 20:29] LABS: Bacteria Urine None Seen; WBC Urine None Seen (0-5/HPF)
[2018-06-08 20:30] LABS: Appearance Urine UA CLEAR; Bilirubin Urine UA NEGATIVE (NEGATIVE); Color Urine UA YELLOW; Glucose Urine UA NEGATIVE (Negative); Ketones Urine UA NEGATIVE (NEGATIVE); Leukocyte Esterase Urine UA NEGATIVE (NEGATIVE); Nitrite Urine UA NEGATIVE (Negative); Occult Blood Urine UA 2+ (Negative); Protein Urine UA NEGATIVE (Negative); Urobilinogen Urine UA 0.2 E.U./dL (0.2)
[2018-06-08 20:39] LABS: Culture Indicated Urine Cult Not Indicated; RBC Urine 1-5/HPF (0-5/HPF)
[2018-06-08 21:58] LABS: Adenovirus Not Detected (Not Detect); Bordetella pertussis Not Detected (Not Detect); Chlamydophila pneumoniae Not Detected (Not Detect); Coronavirus 229E Not Detected (Not Detect); Coronavirus HKU1 Not Detected (Not Detect); Coronavirus NL 63 Not Detected (Not Detect); Coronavirus OC43 Not Detected (Not Detect); Human Metapneumovirus Detected (Not Detect); Human Rhinovirus/Enterovirus Not Detected (Not Detect); Influenza A Not Detected (Not Detect); Influenza B Not Detected (Not Detect); Mycoplasma pneumoniae Not Detected (Not Detect); Parainfluenza Virus 1 Not Detected (Not Detect); Parainfluenza Virus 2 Not Detected (Not Detect); Parainfluenza Virus 3 Not Detected (Not Detect); Parainfluenza Virus 4 Not Detected (Not Detect); Respiratory Syncytial Virus Not Detected (Not Detect)
[2018-06-09] VITALS (11 sets, daily range): BP systolic 115–138; BP diastolic 63–88; PULSE 60–115; RESP 13–22; TEMP 36.7–37.2; O2SAT 93–99
--- NOTE | 2018-06-09 | DI.RAD.S_ITS ---
PROCEDURE: XR CHEST 2V INDICATIONS: cough TECHNIQUE: 2 views of the chest were acquired. COMPARISON: [facility], CR, XR CHEST 1V, 06/08/2018, 8:49. FINDINGS: Surgical changes and devices: Cardiac pacer is unchanged. Lungs and pleura: Focal pulmonary radiopacities are present within the right upper lobe which are new when compared with the study dated 06/08/18. No pleural effusions or pneumothorax. Mediastinum: Mediastinal contours are normal. Heart size is normal. Bones and chest wall: No suspicious bony abnormalities. Soft tissues appear unremarkable. IMPRESSION: New pulmonary radiopacities suspicious for a rounded pneumonia. Short interval followup is recommended with resolution of the patient's symptoms to ensure there is no underlying pulmonary pathology. Dictated by: Brittaney Lopez M.D. on 06/09/2018 at 9:40 Approved by: Brittaney Lopez M.D. on 06/09/2018 at 9:41
[2018-06-09] MEDS: SODIUM CHLORIDE 0.9% 1,000 ML 100 ML IV (03:00)
[2018-06-09 05:34] LABS: Add Manual Diff / Slide Review NO; Basophils Absolute Auto 0 /uL (0-100); Basophils Percent Auto 0.7 % (0-2); Eosinophils Absolute Auto 0 /uL (0-450); Eosinophils Percent Auto 0.4 % (2-4); Hematocrit 32.6 % (36-46); Hemoglobin 10.7 g/dL (12.0-16.0); Lymphocytes Absolute Auto 800 /uL (1100-4500); Lymphocytes Percent Auto 18.8 % (25-40); Mean Corpuscular HGB Conc 32.8 % (30-36); Mean Corpuscular Hemoglobin 31.3 PG (26-34); Mean Corpuscular Volume 95.3 fL (80-100); Monocytes Absolute Auto 400 /uL (0-900); Monocytes Percent Auto 8.6 % (3-14); Neutrophils Absolute Auto 3100 /uL (1500-7000); Neutrophils Percent Auto 71.5 % (50-75); Platelet Count 129 X10^3/uL (150-400); Red Blood Cell Count 3.42 X10^6/uL (4.0-5.2); Red Cell Distribution Width 14.2 % (11.6-14.8); White Blood Cell Count 4.3 X10^3/uL (4.5-11.0)
[2018-06-09 05:38] LABS: INR 3.3 (0.9-1.3); Prothrombin Time 39.7 SECONDS (10.1-12.7)
[2018-06-09 05:44] LABS: Alanine Aminotransferase 33 IU/L (9-52); Albumin 3.3 g/dL (3.5-5.0); Albumin Globulin Ratio 1.1 (1.0-2.8); Alkaline Phosphatase 42 U/L (38-126); Aspartate Aminotransferase 29 IU/L (14-36); BUN Creatinine Ratio 21.7 (6-22); Bilirubin Total 0.4 mg/dL (0.2-1.3); Blood Urea Nitrogen 26 mg/dL (7-17); Carbon Dioxide 21 mmol/L (22-32); Chloride 121 mmol/L (98-107); Glucose 110 mg/dL (80-110); HEMOLYSIS < 15 (0-50); Potassium 4.5 mmol/L (3.4-5.1); Sodium 149 mmol/L (137-145); Total Protein 6.3 g/dL (6.3-8.2)
[2018-06-09 06:06] LABS: B Type Natriuretic Peptide 1020 (<100)
--- NOTE | 2018-06-09 09:20 | PT.IPTN ---
Current Diagnoses Toxic encephalopathy (06/08/18) Altered mental status, unspecified (06/08/18) Other terminal press operator (current) drug therapy (06/08/18) Physical Therapy Treatment Note M2 PT-IP Current Condition Start: 06/08/18 15:49 Freq: NEEDED Status: Active Protocol: Document 06/08/18 14:50 RCC (Rec: 06/08/18 16:02 [facility] [id number]) Physical Therapy Current Condition Current Condition Evaluation Date 06/08/18 Treatment Diagnosis encephalopathy, impaired activity tolerance and mobility M3 PT-IP Subjective Start: 06/08/18 15:49 Freq: NEEDED Status: Active Protocol: Document 06/09/18 08:45 LJ (Rec: 06/09/18 09:20 LJ [id number]) Subjective Physical Therapy Visit Type Type Treatment Note Visit Start Time 08:45 Visit Stop Time 09:07 Total Visit Minutes 22 Number of ADVANCED MANUFACTURING TECHNICIAN Visits 1 Physical Therapy Visit Comments Patient Comments Pt verbalizing yes and no answers and short sentences such as I'm ok and yes, I can. Daughter in room stating she'd like pt to get up and walk around room. Pt had been up x2 already with nursing this am. M4 PT-IP Mobility and Gait Start: 06/08/18 15:49 Freq: NEEDED Status: Active Protocol: Document 06/09/18 08:45 LJ (Rec: 06/09/18 09:20 LJ [id number]) PT-Bed Mobility Assessment Supine to Sit Supine to Sit Contact Guard Assistance Minimal Assistance Scooting Scooting to Edge of Bed Contact Guard Assistance Minimal Assistance PT-Transfer Assessment Sit to and From Stand Sit to and from Stand Contact Guard Assistance Use of Upper Extremities Equipment Transfer Assistive Device None Gait Belt Transfers Transfer Destination Chair Transfer Technique Stand Step Pivot Transfer Ability Level of Assist Contact Guard Assistance Minimal Assistance Comments Mobility Comments Pt ambulated around room and sat on couch for 2 min before ambulating to chair. Uncertain if pt was fatigued or confused about sitting on the couch. Pt requiring CGA for stability and Sharan for directions. Gait Assessment Gait Gait Assistance Required: Minimum Assistance Distance (Feet) 25 Assistive Devices Assistive Device None Gait Belt Gait Deviations General Gait Pattern Decreased Stride Length Decreased Feet Clearance Narrow Based Gait Factors Limiting Gait Function Factors Limiting Gait Function Decreased Activity Tolerance Decreased Strength Difficulty Following Directions Poor Safety Awareness Comments Gait Comments hand held assistance M5 PT-IP Objective Assessments Start: 06/08/18 15:49 Freq: NEEDED Status: Active Protocol: Document 06/08/18 14:50 RCC (Rec: 06/08/18 16:02 [facility] [id number]) Orientation Orientation/Cognition Level of Alertness Confusional State Comments answers to name but otherwise unable to verbalize much Strength Comments Strength Comments unable to assess d/t cognitive impairment Sensation Assessment Comments Sensation Comments unable to assess d/t cognitive impairment M6 PT-IP Treatment Start: 06/08/18 15:49 Freq: NEEDED Status: Active Protocol: Document 06/08/18 14:50 RCC (Rec: 06/08/18 16:02 [facility] [id number]) Physical Therapy Treatment Education Education Provided Safety Other Treatments Other Treatment Performed daughter instructed to let staff know if she would be out of the room. M7 PT-IP Assessment and Plan Start: 06/08/18 15:49 Freq: NEEDED Status: Active Protocol: Document 06/09/18 08:45 LJ (Rec: 06/09/18 09:20 LJ [id number]) PT Summary Assessment and Plan Summary Assessment Summary Pt improved verbal response with appropriate answers to questions. Very hard of hearing. post ambulation pt sat in chair and quickly fell asleep. Pt did not appear to be fatigued with walking around the room. Rather appeared confused and sat on couch because it was there and she thought she was supposed to sit. Transfer from couch to chair was SBA. Pt left in room with daughter. Goals Bed Mobility Goal Independent Transfer Goal Independent Gait Goal Standby Assistance Gait Distance 300 Other Goals up/down 2 steps with R rail and CGA. Days to Meet Goals 5 Frequency of Treatment Frequency Of Treatment Twice a Day Treatment Plan Physical Therapy Treatment Plan Bed Mobility Training Transfer Training Gait Training Therapeutic Exercise Balance Retraining Discharge Planning Neuromuscular Re-ed Other Recommendations and Next Treatment progress gait and mobility as Focus tolerated, continue to assess safety awareness
[2018-06-09] MEDS: DOCUSATE ORAL LIQUID 100 MG/10 ML UDC PO (09:59)
[2018-06-09] MEDS: SODIUM CHLORIDE 0.9% FLUSH 10 ML IV ×2 (10:01→20:25)
--- NOTE | 2018-06-09 15:59 | CM.DANOTE ---
DCP/Assessment: Reviewed chart. Patient is 83yr old female admitted to [facility] with altered mental status. PCP is Dr. Clements. Primary payor is 1)Medicare 2)[facility]. Reviewed chart. RANGE MOUNTER met briefly with daughter/Kalyn, RORO/Froilan, and patient. Patient resides with family in [place]. Daughter reports patient recently with exacerbated confusion. Daughter believes might be related to UTI and/or Stroke? Patient with some confusion at baseline however, daughter reports patient very functioning at home. Patient has care around the clock. At this time d/c needs unknown. Therapy evaluation pending. Anticipate that family will want patient to return home. P: Pending. Will follow up with patient/family on 06-10-18. HARDY Dunn Discharge Planning/Care Management Advanced directive, confirm from FAMILY Start: 06/08/18 12:12 Freq: Q24H Status: Active Protocol: Document 06/08/18 12:12 TEP (Rec: 06/08/18 12:19 TEP [id number]) Advance Directive, confirm on record Time 12:16 Person contacted caregiver Copy received No Document 06/09/18 12:12 KTE (Rec: 06/09/18 12:20 KTE [id number]) Advance Directive, confirm on record Time 12:16 Person contacted caregiver Copy received No Time 12:20 Person contacted family Copy received No CM Discharge Assessment Start: 06/09/18 15:53 Freq: Status: Active Protocol: Document 06/09/18 15:53 KJS (Rec: 06/09/18 15:59 KJS [id number]) Discharge Planning Assessment Assigned Product Controller HARDY Dunn Contact Information Kalyn Silvestre (daughter) Advance Directives? Yes Advance Directives on File No: patient lost advanced directive History Provided By Patient Family Member Medical Record Has Patient been admitted in last 30 No days? Prior Living Arrangements House Household Members family children Type of transporation used prior to Relies on Others admit Is patient alert and oriented? No Needs Assistance With Meal Prep Managing Medications Home Chores / Shopping Caregiver for Another No Barriers to Discharge No Discharge Plan Home Transportation Arrangement Family to provide transport pending needs. Additional Comment D/C needs unclear at this time . Whiteboard Updated in Patient Room with Yes name and ext. # of Product Controller Review Status In Process Please Provide Date Initial DC 06/09/18 Assessment Was Performed Next Review Type Continued Stay Review
--- NOTE | 2018-06-09 16:46 | PT.IPTN ---
Current Diagnoses Toxic encephalopathy (06/08/18) Altered mental status, unspecified (06/08/18) Other manager intermediate (current) drug therapy (06/08/18) Physical Therapy Treatment Note M2 PT-IP Current Condition Start: 06/08/18 15:49 Freq: NEEDED Status: Active Protocol: Document 06/08/18 14:50 RCC (Rec: 06/08/18 16:02 RCC [id number]) Physical Therapy Current Condition Current Condition Evaluation Date 06/08/18 Treatment Diagnosis encephalopathy, impaired activity tolerance and mobility M3 PT-IP Subjective Start: 06/08/18 15:49 Freq: NEEDED Status: Active Protocol: Document 06/09/18 15:40 LJ (Rec: 06/09/18 16:46 LJ [email or web address]) Subjective Physical Therapy Visit Type Type Treatment Note Visit Start Time 15:40 Visit Stop Time 16:06 Total Visit Minutes 26 Number of MOBILE LOUNGE DRIVER OR OPERATOR Visits 2 Physical Therapy Visit Comments Patient Comments Pt in bathroom with nursing. Increased confusion and lack of cooperation. Increased agitation from am treatment session. Daughter not present. M4 PT-IP Mobility and Gait Start: 06/08/18 15:49 Freq: NEEDED Status: Active Protocol: Document 06/09/18 15:40 LJ (Rec: 06/09/18 16:46 LJ [id number]) PT-Transfer Assessment Sit to and From Stand Sit to and from Stand Contact Guard Assistance Minimal Assistance Equipment Transfer Assistive Device None Gait Belt Transfers Transfer Destination Chair Transfer Technique Stand Step Pivot Transfer Ability Level of Assist Contact Guard Assistance Minimal Assistance 2 Person Assistance Comments Mobility Comments Pt unable to follow directions without many verbala and tactile cues. Increased confusion and agitation. Pt ambulated from toilet to chair to change soiled socks and don briefs. Pt with difficulty standing once in chair. Required mod cues and assist to stand. Pt unable to stand up straight. Sat back down in chair after briefs were pulled up. Pt left with warm blanket and food tray in fron of her. Laborer [employer] remained in room to take vitals. Gait Assessment Gait Gait Assistance Required: Contact Guard Assist Minimum Assistance Distance (Feet) 10 Assistive Devices Assistive Device None Gait Belt Gait Deviations General Gait Pattern Decreased Stride Length Decreased Feet Clearance Narrow Based Gait Factors Limiting Gait Function Factors Limiting Gait Function Decreased Activity Tolerance Decreased Strength Difficulty Following Directions Poor Safety Awareness Comments Gait Comments Pt ambulated from bathroom to chair with confusion nd multiple cues and coaxing. Stand>sit SBA. Pt left in chair with chair alarm and K 9 HANDLER/ DEPUTY present. M5 PT-IP Objective Assessments Start: 06/08/18 15:49 Freq: NEEDED Status: Active Protocol: Document 06/08/18 14:50 RCC (Rec: 06/08/18 16:02 RCC [id number]) Orientation Orientation/Cognition Level of Alertness Confusional State Comments answers to name but otherwise unable to verbalize much Strength Comments Strength Comments unable to assess d/t cognitive impairment Sensation Assessment Comments Sensation Comments unable to assess d/t cognitive impairment M6 PT-IP Treatment Start: 06/08/18 15:49 Freq: NEEDED Status: Active Protocol: Document 06/08/18 14:50 RCC (Rec: 06/08/18 16:02 RCC [id number]) Physical Therapy Treatment Education Education Provided Safety Other Treatments Other Treatment Performed daughter instructed to let staff know if she would be out of the room. M7 PT-IP Assessment and Plan Start: 06/08/18 15:49 Freq: NEEDED Status: Active Protocol: Document 06/09/18 15:40 LJ (Rec: 06/09/18 16:46 LJ [id number]) PT Summary Assessment and Plan Summary Assessment Summary Pt with increased confusion and agitation. Mostly unable to answer questions. Preoccupied with hospital gown and toilet paper. Unable to stand erect for brief to be pulled up. Pt sat back in chair refusing/unable to ambulate any further. Goals Bed Mobility Goal Independent Transfer Goal Independent Gait Goal Standby Assistance Gait Distance 300 Other Goals up/down 2 steps with R rail and CGA. Days to Meet Goals 5 Frequency of Treatment Frequency Of Treatment Twice a Day Treatment Plan Physical Therapy Treatment Plan Bed Mobility Training Transfer Training Gait Training Therapeutic Exercise Balance Retraining Discharge Planning Neuromuscular Re-ed Other Recommendations and Next Treatment progress gait and mobility as Focus tolerated, continue to assess safety awareness Recommendations To Nursing Amount of Assist Needed 2 Person Assist Discharge Recommendations PT Discharge Recommendations Home with 24/7 Assist Home Health SNF Rehab Other Discharge Recommendations home with 24/7 assist and HH PT/OT vs SNF, requires further ongoing assessment.
[2018-06-09 17:28] LABS: Appearance Urine UA SL CLOUDY; Bilirubin Urine UA NEGATIVE (NEGATIVE); Color Urine UA YELLOW; Glucose Urine UA NEGATIVE (Negative); Ketones Urine UA NEGATIVE (NEGATIVE); Leukocyte Esterase Urine UA TRACE (NEGATIVE); Nitrite Urine UA POSITIVE (Negative); Occult Blood Urine UA 3+ (Negative); Protein Urine UA NEGATIVE (Negative); Urobilinogen Urine UA 0.2 E.U./dL (0.2)
--- NOTE | 2018-06-09 17:46 | OT.IP.EVAL ---
Current Diagnoses Toxic encephalopathy (06/08/18) Altered mental status, unspecified (06/08/18) Other longterm (current) drug therapy (06/08/18) Past Medical History (Last Reviewed 06/08/18 @ 14:19 by Denise Leslie MD) Adverse drug effect (Chronic) Ankle pain (Chronic) Asthma (Chronic ~1975) Atrial fibrillation (Chronic 2012) Chronic cough (Chronic) Hayfever (Chronic ~1975) Hearing loss (Chronic ~1989) History of recurrent ear infection (Chronic) Hyperlipidemia (Chronic) Osteoporosis (Chronic) Pacemaker (Chronic 2012) Recurrent sinusitis (Chronic) Tinnitus (Chronic) Bipolar disorder (Resolved 1983) Cataract (Resolved 2013) Chicken pox (Resolved) Measles (Resolved) Ruptured tympanic membrane (Resolved) Stroke (Resolved 2012) Surgical History (Last Reviewed 06/08/18 @ 14:19 by Denise Leslie MD) Anesthesia (Resolved) History of cataract removal with insertion of prosthetic lens (Resolved 2013) History of endoscopic sinus surgery (Resolved 1989) History of nasal polypectomy (Resolved 1982) History of right mastoidectomy (Resolved 1996) Presence of cardiac pacemaker (Resolved 2012) Status post myringotomy with insertion of tube (Resolved 2008) Occupational Therapy Inpatient Evaluation/Re-Eval M1 PT/OT-IP Prior Functional Status Start: 06/09/18 17:08 Freq: NEEDED Status: Active Protocol: Document 06/09/18 11:50 [facility] (Rec: 06/09/18 17:46 [facility] [id number]) Medical Review Prior Functional Status Medical History Reviewed Yes Mobility and Gait indep. ambulator in and outdoors on gravel road and in yard at home without an assistive device Activities of Daily Living and IADL's Pt's daughter, Kalyn states washes her hair as pt does not like to wash her hair. Pt takes bathes and daughter present throughout. Kalyn states has to lay out her clothing and at times pt gets orientation of clothing wrong. At times if in a hurry , Kalyn will just assist pt for dressing. Pt needs assist for problem solving for feeding at times, for example , prior to this hospitalization, pt did not realize that she has to unwrap the burrito farther down in order to eat more, otherwise per daughter has been able to independently feed herself. Prior Functional Level (Other details) Kalyn states prior patient at times at home alone and that her son's live close by and check on her. Social History Household Members family children Living Arrangements House Number of Floors (Floors) One Floor Number of Stairs To Enter/Railing? 2 SE R ascending rail. Has living quarters in home with daughter and family, access to BR and bed on one level. Home Environment Standard Height Toilet Additional Social History Comment Pt found at home with increased confusion, stool in sink and throughout room and pt non-verbal which is well below her prior level of function. Pt has a h/o previous UTI with encephalopaty, initial screening negative in urine. CT of head and chest radiograph also negative. Pt has dementia, bipolar disorder and chronic A-fib. Pt also SEMINOLE. M2 OT-IP Current Condition Start: 06/09/18 17:08 Freq: Status: Active Protocol: Document 06/09/18 11:50 [facility] (Rec: 06/09/18 17:46 [facility] [id number]) Occupational Therapy Current Condition Current Condition Evaluation Date 06/09/18 Treatment Diagnosis Increased confusion, weakness Diagnosis Onset Date 06/08/18 M3 OT- IP Subjective and Pain Start: 06/09/18 17:08 Freq: Status: Active Protocol: Document 06/09/18 11:50 [facility] (Rec: 06/09/18 17:46 [facility] [id number]) OT- Subjective Occupational Therapy Visit Type Type Initial Evaluation Visit Start Time 11:50 Visit Stop Time 12:35 Total Visit Minutes 45 Occupational Therapy Visit Comments Patient Comments Pt asleep when checking on the pt for OT eval. Pt's daughter , Kalyn in the room and able to answer questions as pt mainly non verbal. M4 OT- IP ADL's Start: 06/09/18 17:08 Freq: Status: Active Protocol: Document 06/09/18 11:50 [facility] (Rec: 06/09/18 17:46 [facility] [id number]) OT [id number] General Evaluation Self-Feeding Ability Moderate Assistance Areas Needing Assistance Cutting Food Opening Containers Comments OT Self-Feeding Comments Pt not initiating to eat , however when banana brought to her lips, pt would take a bit and eat, eventually able to place banana in her left hand and able to eat the banana for a few more bites and even able to use both hands to peel the skin down. Noted wet sounding coughs after pt drinking her juice and that pt spit out phlegm into her cup of juice and then proceeded to try to drink out of the cup and therefore had to take cup away. Therefore pt needing 1:1 assist to eat. In addition notified nursing of wet sounding coughs. OT ADL-Grooming General Evaluation Grooming Ability Maximum Assistance Comments OT Grooming Comments SEMINOLE assist to wash her hands. Pt did not attempt to wash her hands after wash cloth placed in her hands. OT ADL-Dressing Comments OT Dressing Comments Per nursing aid, pt dependent for brief,socks, and for toilet hygiene. M5 OT- IP IADL's Start: 06/09/18 17:08 Freq: Status: Active Protocol: Document 06/09/18 11:50 [facility] (Rec: 06/09/18 17:46 [facility] [id number]) OT-Instrumental Activities of Daily Living Medication Management Medication Management Caregiver Administers Money Management Money Management Caregiver Provides Assistance Meal Preparation Meal Preparation Caregiver Provides Assist Driving Driving Caregiver Provides Assist M6 OT- IP Functional Cognition Start: 06/09/18 17:08 Freq: Status: Active Protocol: Document 06/09/18 11:50 [facility] (Rec: 06/09/18 17:46 [facility] [id number]) Cognitive Factors Limiting Selfcare Function Cognitive Ability Level of Alertness Confusional State Attention Span Ability Unable to Focus Unable to Sustain Attention Cognitive Comments Cognitive Assessment Comments Pt not able to consistently respond to her name. Pt needing lots of tactile,vc, and visual cues to follow. Pt appears to respond better with her daughter present. Pt having a hard time staying in one place and constantly trying to get up, place blanket around her shoulders, as daughter states probably thinking that pt is wanting to put jacket on as she usually does after eating at home before she goes out to see the [place] the [place]. OT- Vision and Hearing OT- Vision Assessment Vision Assessment Comments Unable to fully assess due to decreased ability to follow directions. Pt appears to avoid obstacles when walking in the room with therapist holding onto her CGA by gait belt and no device. M7 OT- IP Mobility and Balance Start: 06/09/18 17:08 Freq: Status: Active Protocol: Document 06/09/18 11:50 [facility] (Rec: 06/09/18 17:46 [facility] [id number]) OT- Bed Mobility Assessment Rolling Type of Rolling Roll to Left Supine to Sit Supine to Sit Assist Moderate Assistance Sit to Supine Sit to Supine Assist Moderate Assistance Scooting Scooting to Edge of Bed Minimal Assistance OT-Transfer Assessment Sit to and From Stand Sit to and from Stand Minimal Assistance Transfers Transfer Ability Contact Guard Assistance Minimal Assistance 1 Person Assistance Technique Transfer Destination Bed Chair Transfer Technique Stand Step Pivot Devices Transfer Assistive Devices None Gait Belt Comments Mobility Comments Pt able to come to stand form recliner and high bed CY x1 with gait belt and able to take step in the room with CGA , pt tends to have flexed posture and take very small steps and a bit unsteady on her feet. Pt needing assist to get her feet into the bed and assist to help scoot forwards to get her feet to the floor before standing. OT- Balance Assessment Sitting Balance and Reactions Static Sitting Balance Ability Fair Dynamic Sitting Balance Ability Poor Standing Balance and Reactions Static Standing Balance Ability Fair M8 OT- IP Objective Assessments Start: 06/09/18 17:08 Freq: Status: Active Protocol: Document 06/09/18 11:50 [facility] (Rec: 06/09/18 17:46 [facility] [id number]) OT Strength Comments Strength Comments Pt per task of eating and transfers, strength at least 3 -/5 but unable to formally assess. M9 OT- IP Assessment and Plan Start: 06/09/18 17:08 Freq: Status: Active Protocol: Document 06/09/18 11:50 [facility] (Rec: 06/09/18 17:46 [facility] [id number]) OT Summary Assessment and Plan Potential Rehabilitation Potential Fair Analytic Complexity at Evaluation Low Summary OT Impairments Strength Balance Functional Cognition Functional Mobility Self-Feeding Grooming Dressing Toileting Bathing Toilet Transfers Shower Transfers Progress Towards Goals Slow Progress due to Medical Issues Slow Progress due to Activity Tolerance Slow Progress due to Cognition Assessment Summary Pt low complexity and main barrier is decreased functional cognition and per daughter increased confusion and not able to follow do basic needs as prior able to do so with intermittent supervison. Pt at this time would require 24/7 assist at home. Goals Self-Feeding Goal Standby Assistance Grooming Goal Standby Assistance Dressing Goal Minimal Assistance Toileting Goal Minimal Assistance Bathing Goal Moderate Assistance Toilet Transfer Goal Standby Assistance Shower Transfer Goal Minimal Assistance Patient/Caregiver Education Goal Caregiver Independent Assisting Patient Days to Meet Goals 5 Frequency of Treatment Frequency Of Treatment Once a Day Treatment Plan OT Treatment Plan ADL Training Functional Cognition Training Functional Mobility Patient/Family Education Discharge Planning Other Treatment Recommendations and Next Stand at sink for grooming Treatment Focus needs. Discharge Recommendations OT Discharge Recommendations Home with 24/7 Assist versus skilled rehab. Due to pt's dementia would probably due better at home versus skilled rehab as she has a structured routine and schedule. In addition she loves the see and visit animals on the farm and organize her fabrics/items at home.
[2018-06-09 18:16] LABS: Bacteria Urine Many (>30); Culture Indicated Urine Specimen Cultured; RBC Urine 5-10/HPF (0-5/HPF); WBC Urine 10-30/HPF (0-5/HPF)
[2018-06-09] MEDS: CEFTRIAXONE 2 GM/50 ML FROZ.PIGGY IV (19:28)
[2018-06-09] MEDS: LITHIUM 300 MG IR CAPSULE PO (19:34)
[2018-06-09] MEDS: METOPROLOL ER 25 MG TABLET PO (19:35)
[2018-06-09] MEDS: MONTELUKAST 10 MG TABLET PO (19:38)
[2018-06-09] MEDS: WARFARIN 2 MG TABLET PO (19:39)
--- NOTE | 2018-06-09 20:03 | P.PN_ITS ---
Subjective Date Patient Seen: 06/09/18 Interval history: Иван Maradiaga is an 83-year-old female with a history of dementia, bipolar affective disorder, and chronic atrial fibrillation on warfarin who was admitted for acute encephalopathy. The patient is resting in bedside chair comfortably. She does not open her eyes and is nonverbal. She is protecting her airway. Review of systems is unobtainable. She is voiding and eliminating without difficulty. He or she is up ambulating without or with assistance. Exam Vital Signs (past 8 hours): - 06/09/18 15:00 06/09/18 16:58 06/09/18 19:35 Temperature 98.1 F Pulse Rate 69 104 H Respiratory Rate 13 Blood Pressure 138/75 124/88 Pulse Oximetry 97 97 Oxygen Delivery Method Room Air Oxygen Flow Rate 0 Narrative Exam Narrative: General: Elderly female sitting in bedside chair and in no acute distress, thin, unresponsive due to metabolic encephalopathy, protecting airway. HEENT: Normocephalic, atraumatic. External ears without defect. Neck: Supple. No lymphadenopathy or thyromegaly. Cardiovascular: Irregularly irregular without murmurs, rubs, or gallops appreciated. Pulmonary: Coarse breath sounds throughout especially and right upper lung field. Normal respiratory effort with no use of accessory muscles. Abdomen: Soft, bowel sounds present, appears nontender, nondistended. No hepatosplenomegaly or masses appreciated. Extremities: No clubbing, cyanosis, or edema. Skin: Normal temperature, turgor, and texture; no rash, ulcers, or subcutaneous nodules appreciated. Neurological: Cranial nerves grossly intact. Psychiatric: Nonverbal and unresponsive due to metabolic encephalopathy. Objective Labs Result Diagrams: 06/10/18 05:28 06/10/18 05:28 Labs: Laboratory Results - last 24 hr 06/08/18 06/08/18 06/09/18 20:15 20:15 05:16 WBC RBC Hgb Hct MCV MCH MCHC RDW Plt Count Neut % (Auto) Lymph % (Auto) [place] % (Auto) Eos % (Auto) Baso % (Auto) Neut # (Auto) Lymph # (Auto) [place] # (Auto) Eos # (Auto) Baso # (Auto) PT 39.7 H D INR 3.3 H Sodium Potassium Chloride Carbon Dioxide BUN Creatinine Estimated GFR BUN/Creatinine Ratio Glucose Calcium Total Bilirubin AST ALT Alkaline Phosphatase B-Natriuretic Peptide Total Protein Albumin Globulin Albumin/Globulin Ratio Urine Color Yellow Urine Appearance Clear Urine pH 7.0 Ur Specific [place] 1.010 Urine Protein Negative Urine Glucose (UA) Negative Urine Ketones Negative Urine Occult Blood 2+ H Urine Nitrate Negative Urine Bilirubin Negative Urine Urobilinogen 0.2 Ur Leukocyte Esterase Negative Urine RBC 1-5/hpf Urine WBC None seen Urine Bacteria None seen Ur Culture Indicated? Cult not indicated Chlamy pneumoniae PCR Not detected Adenovirus (PCR) Not detected B.parapertussis DNA PCR Not detected Coronavirus OC43 (PCR) Not detected Coronavirus HKU1 (PCR) Not detected Coronavirus 229E (PCR) Not detected Coronavirus NL63 (PCR) Not detected Human Metapneumovir PCR Detected H Influenza Type A (PCR) Not detected Influenza Type B (PCR) Not detected M. pneumoniae (PCR) Not detected Parainfluenza 1 (PCR) Not detected Parainfluenza 2 (PCR) Not detected Parainfluenza 3 (PCR) Not detected Parainfluenza 4 (PCR) Not detected RSV (PCR) Not detected Entero/Rhino (PCR) Not detected 06/09/18 06/09/18 06/09/18 05:16 05:16 16:15 WBC 4.3 L RBC 3.42 L Hgb 10.7 L Hct 32.6 L MCV 95.3 MCH 31.3 MCHC 32.8 RDW 14.2 Plt Count 129 L Neut % (Auto) 71.5 Lymph % (Auto) 18.8 L [place] % (Auto) 8.6 Eos % (Auto) 0.4 L Baso % (Auto) 0.7 Neut # (Auto) 3100 Lymph # (Auto) 800 L [place] # (Auto) 400 Eos # (Auto) 0 Baso # (Auto) 0 PT INR Sodium 149 H D Potassium 4.5 Chloride 121 H Carbon Dioxide 21 L BUN 26 H Creatinine 1.20 H Estimated GFR 43.0 L BUN/Creatinine Ratio 21.7 Glucose 110 Calcium 9.0 Total Bilirubin 0.4 AST 29 ALT 33 Alkaline Phosphatase 42 B-Natriuretic Peptide 1020 H Total Protein 6.3 Albumin 3.3 L Globulin 3.0 Albumin/Globulin Ratio 1.1 Urine Color Yellow Urine Appearance Sl cloudy Urine pH 6.0 Ur Specific [place] 1.010 Urine Protein Negative Urine Glucose (UA) Negative Urine Ketones Negative Urine Occult Blood 3+ H Urine Nitrate Positive H Urine Bilirubin Negative Urine Urobilinogen 0.2 Ur Leukocyte Esterase Trace H Urine RBC 5-10/hpf H Urine WBC 10-30/hpf H D Urine Bacteria Many (>30) H D Ur Culture Indicated? Specimen cultured Chlamy pneumoniae PCR Adenovirus (PCR) B.parapertussis DNA PCR Coronavirus OC43 (PCR) Coronavirus HKU1 (PCR) Coronavirus 229E (PCR) Coronavirus NL63 (PCR) Human Metapneumovir PCR Influenza Type A (PCR) Influenza Type B (PCR) M. pneumoniae (PCR) Parainfluenza 1 (PCR) Parainfluenza 2 (PCR) Parainfluenza 3 (PCR) Parainfluenza 4 (PCR) RSV (PCR) Entero/Rhino (PCR) Assessment & Plan Assessment & Plan narrative: Иван Maradiaga is an 83-year-old female with a history of dementia, bipolar affective disorder, and chronic atrial fibrillation on warfarin who was admitted for acute encephalopathy. 1. Acute metabolic encephalopathy, present on admission. Active. -Patient previously has had confusion associated with the urinary tract infection in the past. -Repeat chest x-ray demonstrated right upper lobe radiopacities, as below, and viral respiratory PCR positive for metapneumovirus. -Repeat urinalysis appears grossly infected, as below. -Will treat underlying causes as below. 2. Viral with superimposed bacterial (possibly aspiration) pneumonia, present on admission. Active. -Ordered incomplete pneumonia workup including: Respiratory viral PCR which is positive for human metapneumovirus. Sputum culture pending. Blood culture x2 have no growth to date. Did not order strep pneumonia and Legionella urine antigens as send out and will not be received likely during time patient is hospitalized. -Chest x-ray demonstrated right upper lobe radiopacity suspicious for aspiration pneumonia. -Started ceftriaxone 2 g IV daily and azithromycin 500 mg IV x 3 doses total for broad spectrum coverage and atypicals. -Continue IV fluids with NS at 100 mL/hr. 3. Acute urinary tract infection, present on admission. Active. -Repeat urinalysis grossly infected with gram-negative bacteria on Gram stain. Identification and sensitivities pending. -Continue ceftriaxone as above. -Continue IV fluids with NS at 100 mL/hr. 4. Chronic kidney disease stageII, present on admission. Stable. -Initial creatinine 1.4. Baseline creatinine between 1.2-1.3. Does not represent acute kidney injury. -Avoid nephrotoxin agents. -Continue to monitor creatinine daily. -Continue IV fluids with NS at 100 mL/hr. 5. Bipolar affective disorder chronic, present on admission. Stable. -Continue home lithium 300 mg daily. -Kaplan level therapeutic at 1.1. 6. Dementia, chronic, present on admission. Presumed stable. 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 Not currently at baseline. -If patient found not to have infectious etiology for metabolic encephalopathy will consider MRI. 7.. Chronic atrial fibrillation, present on admission. -Continue home Coumadin. Initial INR therapeutic at 2.8. Continue to monitor INR daily. -Currently rate is controlled on metoprolol succinate 25 mg daily. Disposition: Patient likely to discharge in several days once metabolic encephalopathy has resolved. Quality VTE Deep Vein Thrombosis/Pulmonary Embolism Present on Admission: No
[2018-06-09] MEDS: AZITHROMYCIN 500 MG in DEXTROSE 5% IN WATER 250 ML IV (20:22)
--- NOTE | 2018-06-09 20:50 | PC.NURSE ---
was 2 small randall
--- NOTE | 2018-06-09 22:53 | PC.NURSE ---
Sena shift note: Patient is awake and able to track nurse. However, not verbalizing. Unable to obtain orientation or further information. Will cooperative when performing activities such as obtaining blood pressure. Patient will also reach for finger foods. Will retrieve into a warm blanket. Patient became increasingly more alert and awake as shift progressed. Daughter here to visit this shift, patient interacting with daughter. Became more verbal and smiling. At approx 2030 patients heart rate increased and fluctuated between 80's to 130's. BP stable. Notified provider Johnson OLIVIA, no further orders obtained. Will continue to monitor closely.
[2018-06-10] VITALS (13 sets, daily range): BP systolic 111–150; BP diastolic 57–83; PULSE 60–144; RESP 16–24; TEMP 36.8–37.4; O2SAT 95–99; BMI 17.6
[2018-06-10 05:51] LABS: Add Manual Diff / Slide Review NO; Basophils Absolute Auto 0 /uL (0-100); Basophils Percent Auto 0.6 % (0-2); Eosinophils Absolute Auto 100 /uL (0-450); Eosinophils Percent Auto 1.8 % (2-4); Hemoglobin 11.7 g/dL (12.0-16.0); Lymphocytes Absolute Auto 1900 /uL (1100-4500); Lymphocytes Percent Auto 32.9 % (25-40); Mean Corpuscular HGB Conc 33.5 % (30-36); Mean Corpuscular Hemoglobin 31.7 PG (26-34); Mean Corpuscular Volume 94.5 fL (80-100); Monocytes Absolute Auto 400 /uL (0-900); Monocytes Percent Auto 7.8 % (3-14); Neutrophils Absolute Auto 3200 /uL (1500-7000); Neutrophils Percent Auto 56.9 % (50-75); Platelet Count 143 X10^3/uL (150-400); Red Cell Distribution Width 14.3 % (11.6-14.8); White Blood Cell Count 5.7 X10^3/uL (4.5-11.0)
[2018-06-10 05:56] LABS: Alanine Aminotransferase 37 IU/L (9-52); Albumin 3.4 g/dL (3.5-5.0); Albumin Globulin Ratio 1.1 (1.0-2.8); Alkaline Phosphatase 46 U/L (38-126); Aspartate Aminotransferase 40 IU/L (14-36); BUN Creatinine Ratio 19.2 (6-22); Bilirubin Total 0.3 mg/dL (0.2-1.3); Blood Urea Nitrogen 23 mg/dL (7-17); Calcium 9.1 mg/dL (8.4-10.2); Carbon Dioxide 22 mmol/L (22-32); Chloride 117 mmol/L (98-107); Globulin 3.2 g/dL (1.7-4.1); Glucose 103 mg/dL (80-110); HEMOLYSIS < 15 (0-50); Magnesium 2.2 mg/dL (1.6-2.3); Potassium 3.7 mmol/L (3.4-5.1); Sodium 145 mmol/L (137-145); Total Protein 6.6 g/dL (6.3-8.2)
[2018-06-10 06:14] LABS: Procalcitonin 0.07 ng/mL (<0.5)
[2018-06-10] MEDS: SODIUM CHLORIDE 0.9% FLUSH 10 ML IV (10:03)
--- NOTE | 2018-06-10 10:53 | OT.IP.TRT ---
Current Diagnoses Toxic encephalopathy (06/08/18) Altered mental status, unspecified (06/08/18) Other terminal operations supervisor (current) drug therapy (06/08/18) Occupational Therapy Treatment Note M2 OT-IP Current Condition Start: 06/09/18 17:08 Freq: Status: Active Protocol: Document 06/09/18 11:50 CCC (Rec: 06/09/18 17:46 [facility] [id number]) Occupational Therapy Current Condition Current Condition Evaluation Date 06/09/18 Treatment Diagnosis Increased confusion, weakness Diagnosis Onset Date 06/08/18 M3 OT- IP Subjective and Pain Start: 06/09/18 17:08 Freq: Status: Active Protocol: Document 06/10/18 10:53 PJM (Rec: 06/10/18 17:02 PJM [id number]) OT- Subjective Occupational Therapy Visit Type Type Treatment Note Visit Start Time 10:30 Visit Stop Time 10:53 Total Visit Minutes 23 Notes Tx session shortened by pt's elevated HR. see details below. Occupational Therapy Visit Comments Patient/Caregiver Goals none verbalized due to confusion OT Pain Assessment Pain When Pain Assessed After Treatment Pain Present Pain Present Pain Reported M4 OT- IP ADL's Start: 06/09/18 17:08 Freq: Status: Active Protocol: Document 06/10/18 10:53 PJM (Rec: 06/10/18 17:02 PJM [id number]) OT DOP-Avtx-Tgqodxt General Evaluation Areas Needing Assistance Drinking From Cup/Glass Comments OT Self-Feeding Comments pt indep drinking from cup with straw OT ADL-Grooming General Evaluation Grooming Ability Contact Guard Assistance Areas Needing Assistance Retrieving/Set-up of Grooming Items Face Washing Comments OT Grooming Comments Pt SBA with min verbal cues for face washing with fair thoroughness noted. Pt needs CGA for standing balance at sink. OT ADL-Oral Care General Eval Oral Care Ability Contact Guard Assistance Areas of Assistance Brushing Teeth Devices Oral Care Devices Toothbrush Comments Oral Care Comments Pt needs mod assist for set up to get paste on brush then CGA for balance with good thoroughness. Pt needs mod verbal cues for sequence of task. Pt observed to be wheezing, standing at sink. Had pt return to chair. O2 sats in mid to high 90's but noted pt' s HR to be in high 140's to 150 with slow recovery over 3+ min to 120's. RN notified and in to apply telemetry unit to pt. OT ADL-Toileting Comments OT Toileting Comments pt declined need to use bathroom this session M6 OT- IP Functional Cognition Start: 06/09/18 17:08 Freq: Status: Active Protocol: Document 06/10/18 10:53 PJM (Rec: 06/10/18 17:02 [facility] [id number]) Cognitive Factors Limiting Selfcare Function Cognitive Ability Level of Alertness Confusional State Patient Orientation Name Attention Span Ability Unable to Sustain Attention Ability to Follow Commands Able to Follow One Step Commands with Increased Time Memory Description Immediate Impaired Short Term Impaired Safety Awareness Decreased Recall of Precautions Decreased Ability to Apply Precautions Problem Solving Ability Unable to Identify Errors Needs Assist to Identify Solutions Executive Function Ability Unable to Organize Plans Unable to Remember Details Cognitive Comments Cognitive Assessment Comments Pt oriented to self only. Pt needing min to mod verbal cues to complete simple grooming tasks for set up, sequence and thoroughness. M7 OT- IP Mobility and Balance Start: 06/09/18 17:08 Freq: Status: Active Protocol: Document 06/10/18 10:53 PJM (Rec: 06/10/18 17:02 [facility] [id number]) OT-Transfer Assessment Sit to and From Stand Sit to and from Stand Contact Guard Assistance Transfers Transfer Ability Contact Guard Assistance Technique Transfer Destination Chair Devices Transfer Assistive Devices Gait Belt Front Wheeled Walker Comments Mobility Comments Pt dislikes FWW and pushes it aside to walk to sink without it with CGA. OT- Gait Assessment Gait Gait Assistance Required: Contact Guard Assist Distance (Feet) 20 Assistive Devices Assistive Device Gait Belt Comments Gait Ability Comments CGA for balance and safety. OT- Balance Assessment Sitting Balance and Reactions Static Sitting Balance Ability Good Standing Balance and Reactions M9 OT- IP Assessment and Plan Start: 06/09/18 17:08 Freq: Status: Active Protocol: Document 06/10/18 10:53 PJM (Rec: 06/10/18 17:02 [facility] [id number]) OT Summary Assessment and Plan Summary Progress Towards Goals Slow Progress due to Medical Issues Slow Progress due to Cognition Assessment Summary Pt's participation in self care tasks limited by wheezing and high HR after standing at sink for 4-5 min this session . Pt remains oriented to self only and needs min to mod verbal cues to complete simple grooming tasks and CGA for safety for mobility without a device. Pt currently needs close supervision/assist for safety during all waking hours . Recommend SNF at d/c as family indicating to case management that they cannot meet pt's care needs at home. Goals Self-Feeding Goal Standby Assistance Grooming Goal Standby Assistance Dressing Goal Minimal Assistance Toileting Goal Minimal Assistance Bathing Goal Moderate Assistance Toilet Transfer Goal Standby Assistance Shower Transfer Goal Minimal Assistance Patient/Caregiver Education Goal Caregiver Independent Assisting Patient Days to Meet Goals 5 Frequency of Treatment Frequency Of Treatment Once a Day Treatment Plan OT Treatment Plan ADL Training Functional Cognition Training Functional Mobility Patient/Family Education Discharge Planning Other Treatment Recommendations and Next Stand at sink for grooming Treatment Focus needs, LB dressing, toileting. Watch for high HR. Discharge Recommendations OT Discharge Recommendations SNF Rehab Home Equipment Needs to be determined
--- NOTE | 2018-06-10 12:00 | PT.IPTN ---
Current Diagnoses Toxic encephalopathy (06/08/18) Altered mental status, unspecified (06/08/18) Other print line operator (current) drug therapy (06/08/18) Physical Therapy Treatment Note M2 PT-IP Current Condition Start: 06/08/18 15:49 Freq: NEEDED Status: Active Protocol: Document 06/08/18 14:50 RCC (Rec: 06/08/18 16:02 RCC [id number]) Physical Therapy Current Condition Current Condition Evaluation Date 06/08/18 Treatment Diagnosis encephalopathy, impaired activity tolerance and mobility M3 PT-IP Subjective Start: 06/08/18 15:49 Freq: NEEDED Status: Active Protocol: Document 06/10/18 11:59 CLB (Rec: 06/10/18 12:00 CLB [id number]) Subjective Physical Therapy Visit Type Type Patient Unavailable Notes Pt unavailable do to increased HR. Will check back with pt in afternoon. M4 PT-IP Mobility and Gait Start: 06/08/18 15:49 Freq: NEEDED Status: Active Protocol: Document 06/09/18 15:40 LJ (Rec: 06/09/18 16:46 LJ [id number]) PT-Transfer Assessment Sit to and From Stand Sit to and from Stand Contact Guard Assistance Minimal Assistance Equipment Transfer Assistive Device None Gait Belt Transfers Transfer Destination Chair Transfer Technique Stand Step Pivot Transfer Ability Level of Assist Contact Guard Assistance Minimal Assistance 2 Person Assistance Comments Mobility Comments Pt unable to follow directions without many verbala and tactile cues. Increased confusion and agitation. Pt ambulated from toilet to chair to change soiled socks and don briefs. Pt with difficulty standing once in chair. Required mod cues and assist to stand. Pt unable to stand up straight. Sat back down in chair after briefs were pulled up. Pt left with warm blanket and food tray in fron of her. Interventionist remained in room to take vitals. Gait Assessment Gait Gait Assistance Required: Contact Guard Assist Minimum Assistance Distance (Feet) 10 Assistive Devices Assistive Device None Gait Belt Gait Deviations General Gait Pattern Decreased Stride Length Decreased Feet Clearance Narrow Based Gait Factors Limiting Gait Function Factors Limiting Gait Function Decreased Activity Tolerance Decreased Strength Difficulty Following Directions Poor Safety Awareness Comments Gait Comments Pt ambulated from bathroom to chair with confusion nd multiple cues and coaxing. Stand>sit SBA. Pt left in chair with chair alarm and ACCOUNTS SPECIALIST present. M5 PT-IP Objective Assessments Start: 06/08/18 15:49 Freq: NEEDED Status: Active Protocol: Document 06/08/18 14:50 RCC (Rec: 06/08/18 16:02 RCC [id number]) Orientation Orientation/Cognition Level of Alertness Confusional State Comments answers to name but otherwise unable to verbalize much Strength Comments Strength Comments unable to assess d/t cognitive impairment Sensation Assessment Comments Sensation Comments unable to assess d/t cognitive impairment M6 PT-IP Treatment Start: 06/08/18 15:49 Freq: NEEDED Status: Active Protocol: Document 06/08/18 14:50 RCC (Rec: 06/08/18 16:02 RCC [id number]) Physical Therapy Treatment Education Education Provided Safety Other Treatments Other Treatment Performed daughter instructed to let staff know if she would be out of the room. M7 PT-IP Assessment and Plan Start: 06/08/18 15:49 Freq: NEEDED Status: Active Protocol: Document 06/09/18 15:40 LJ (Rec: 06/09/18 16:46 LJ [id number]) PT Summary Assessment and Plan Summary Assessment Summary Pt with increased confusion and agitation. Mostly unable to answer questions. Preoccupied with hospital gown and toilet paper. Unable to stand erect for brief to be pulled up. Pt sat back in chair refusing/unable to ambulate any further.
[2018-06-10] MEDS: DEXTROSE 5% WATER 1,000 ML 100 ML IV (12:01)
--- NOTE | 2018-06-10 15:24 | PC.NURSE ---
Shift summary: Late entry Dozing intermittently, but has been much more awake and alert today. She is verbalizing some. Still has difficulty following some directions and is quite hard of hearing. She's getting 2 IV antibiotics to cover UTI and Pneumonia. Lungs sounded coarse with expiratory wheeze/rhonchi. Denies SOB. SpO2 on RA in the upper 90's. Heart rate has been variable, anywhere from 70-150. Dr Cole is aware, started her on IV fluids and wanted to defer any new meds for now. Started on telemetry. Heart rate at this time 83 per monitor. Was up in chair for a few hours earlier, now resting back in bed. Call light in reach, bed alarm on.
--- NOTE | 2018-06-10 15:45 | CM.DPC ---
DCP/continued: Reviewed chart. Per hospitalist in AM rounds patient will remain hospitalized for the next 24-48hrs. Current recommendation from therapy and physician is SNF for rehabilitation. LAW FIRM RECEPTIONIST met with patient's daughter/Kalyn to discuss planning. Patient resides with daughter and her family. Patient has been primarily I with ADL's. Patient has had cognitive deficit from dementia but capable of doing ADL's. Daughter open to short SNF stay if needed however, prefers patient to return home. Provided daughter with SNF list and she will look over. P: Pending. Anticipate short SNF stay vs. returning home with supportive family. Will f/u with family on 06-11-18. HARDY Dunn
[2018-06-10] MEDS: LEVALBUTEROL 1.25 MG/0.5 ML NEB INH (16:16)
--- NOTE | 2018-06-10 16:27 | PT.IPTN ---
Current Diagnoses Toxic encephalopathy (06/08/18) Altered mental status, unspecified (06/08/18) Other digital production manager (current) drug therapy (06/08/18) Physical Therapy Treatment Note M2 PT-IP Current Condition Start: 06/08/18 15:49 Freq: NEEDED Status: Active Protocol: Document 06/08/18 14:50 RCC (Rec: 06/08/18 16:02 RCC [id number]) Physical Therapy Current Condition Current Condition Evaluation Date 06/08/18 Treatment Diagnosis encephalopathy, impaired activity tolerance and mobility M3 PT-IP Subjective Start: 06/08/18 15:49 Freq: NEEDED Status: Active Protocol: Document 06/10/18 16:26 CLB (Rec: 06/10/18 16:27 CLB [id number]) Subjective Physical Therapy Visit Type Type Patient Unavailable Notes Attempted to see pt twice but pt was unavailable as she was working with speech and RT.
[2018-06-10] MEDS: WARFARIN 2 MG TABLET PO (16:51)
[2018-06-10] MEDS: METOPROLOL ER 25 MG TABLET PO (17:07)
--- NOTE | 2018-06-10 18:12 | ST.IPCSEOM ---
Care Team Visit Care Team Role Provider Type Americo Clements MD Primary Care Provider Physician Specialty: Internal Medicine Address: [address] [place] [address], [id number] Email: Davina Alejandro DO Emergency Provider Physician Specialty: Emergency Medicine Address: [address] [place] [address] Email: Denise Leslie MD Admit Provider Physician Attending Provider Specialty: Internal Medicine Address: [address] [place] [address] Email: [email or web address] Current Diagnoses Toxic encephalopathy (06/08/18) Altered mental status, unspecified (06/08/18) Other correction (current) drug therapy (06/08/18) Past Medical History (Last Reviewed 06/08/18 @ 14:19 by Denise Leslie MD) Adverse drug effect (Chronic Medical) Drugs to avoid: penicillin and aspirin per allergy/asthma doctor; decongestants, causing insomnia, which trigger manic disorder. Ankle pain (Chronic Medical) Uses orthotics Asthma (Chronic Medical ~1975) Triggered by secondhand smoke, chemicals, perfumes, etc. Atrial fibrillation (Chronic Medical 2012) Chronic cough (Chronic Medical) Hayfever (Chronic Medical ~1975) Hearing loss (Chronic Medical ~1989) History of recurrent ear infection (Chronic Medical) Hyperlipidemia (Chronic Medical) Osteoporosis (Chronic Medical) Pacemaker (Chronic Medical 2012) Recurrent sinusitis (Chronic Medical) Tinnitus (Chronic Medical) Bipolar disorder (Resolved Medical 1983) Triggered by insomnia with decongestants Cataract (Resolved Medical 2013) Chicken pox (Resolved Medical) Titer test showed immunity? Measles (Resolved Medical) Possible Ruptured tympanic membrane (Resolved Medical) Possible Stroke (Resolved Medical 2012) Speech-Language Pathology Swallow Evaluation STONE SPLITTER Clinical Swallow Evaluation Start: 06/10/18 16:31 Freq: Status: Active Protocol: Document 06/10/18 16:31 LNK (Rec: 06/10/18 18:12 LNK [id number]) Clinical Swallow Evaluation Session Time Visit Start Time 15:30 Visit Stop Time 16:05 Total Visit Minutes 35 Setting Assessment Location Acute Care Visit Type Note Type Initial Evaluation Next Note Type Next Note Type Re-Evaluation Patient Information Identification Type Name ID Wristband History The patient is an 83-year-old female with a history of dementia, bipolar affective disorder, chronic atrial fibrillation who was in her usual state of health until this morning. This morning when her daughter went to see her mom she found her standing over the sink with running water. The patient was previously hospitalized years ago for acute encephalopathy felt to be due to a urinary tract infection. The patient does has a diagnosis of dementia. 1. Acute encephalopathy etiology unclear, present on admission. Patient previously has had confusion associated with the urinary tract infection but there is none on exam. Her chest x-ray was initially negative. New chest x-ray on 06/09/18 indicated focal pulmonary radiopacities present within the right upper lobe which are new when compared with the study dated 06/08/18. No pleural effusions or pneumothorax. 2. Chronic renal insufficiency, present on admission 3. Bipolar affective disorder chronic, present on admission 4. Dementia, chronic, present on 5. Atrial Fibrillation, chronic, present on admission, on coumadin, rate is controlled Subjective Observations Pt was positioned upright in bed with hearing aids in place . Pt appeared to be confused with flattened affect. Pt responded to her name, but had difficulty following directions. Evaluation Liquids Trialed Ice Chips Thin [place] Solids Trialed Dysphagia Mechanical Dysphagia Advanced Administration Type Tea Spoon Controlled Cup Sip Oral Impairment Moderately Impaired Oral Strategies Upright at 90 degrees Lingual Sweep Controlled Bite/Sip Size Dementia Strategies Oral Phase Comments The pt had significant difficulty with following directions. When asked to stick out her tongue, modeling and using gestures were somewhat effective. The pt stuck out less than 1/3 of her tongue. However, the pt's tongue movements were abnormal in that they appeared to be dyskinetic, with tremor and uncontrolled body of tongue movement. Similar movement pattern was noted for her jaw. Oral movements were small and restrictive in general. Dentition was intact. Velar movement appeared to be WFL. Ice chips were chewed WFL; however the pt did continue to chew after the ice had been swalowed/melted. Pt was able to chew a dysphagia mechanical diet easier than dysphagia advanced at this time. Oral residue present post swallow for all trials. Oral care following meals is necessary to prevent aspiration of solids when laying down. Pharyngeal Impairment Severely Impaired Pharyngeal Strategies Sitting Upright (90 deg) Small Bites and Sips Pharyngeal Phase Comments Pharyngeal assessment was difficult as the pt did not follow directions well. When she swallowed, her hyolaryngeal elevation appeared to be WFL; however, forward excursion of hyoid bone was restricted. The pt's swallow was audible/gulpy, indicating poor airway seal. Tracheal congestion was also audible following trials of thin liquids. With nectar thick liquids the pt's swallow was not audible/gulpy. However there was audible tracheal congestion. After a delay, the pt would cough a wet cough and the congestion appeared to clear. Pharyngeal phase of pt's swallow was questionable for safety. Instrumental assessment would be beneficial in determining the safety of pt's swallow as well as provide direction for POC. it is not known if the pt's current buster is stable for such assessment (MBS) at this time. Findings Dysphagia Type Oropharyngeal Dysphagia Rehabilitation Potential Fair Diet Recommendations Liquids Order [place] Diet Order Dysphagia Mechanical Medication Recommendations Crushed in Carrier Additional Dietary Needs 1:1 Assistance Aspiration Precautions Recommended Precautions Upright at 90 Degrees Frequent Rest Periods Small Bites/Sips Treatment Plan Placement Recommendations after Long Term Facility Discharge Appropriate for Therapy Yes: Family education re: assessment/diet/liquids Dysphagia Goals Complete MBS when pt able to tolerate procedure Family education re: current status of pt's swallow function and strategies to reduce risk of aspiration. STONE SPLITTER Follow Up daily
[2018-06-10] MEDS: CEFTRIAXONE 2 GM/50 ML FROZ.PIGGY IV ×2 (18:40→20:45)
[2018-06-10] MEDS: LITHIUM 300 MG IR CAPSULE PO (20:28)
[2018-06-10] MEDS: MONTELUKAST 10 MG TABLET PO (20:30)
[2018-06-10] MEDS: guaiFENesin ER 600 MG TAB 1200 MG PO (20:30)
[2018-06-10] MEDS: AZITHROMYCIN 500 MG in DEXTROSE 5% IN WATER 250 ML IV (20:45)
[2018-06-10] MEDS: DEXTROSE 5% WATER 1,000 ML 125 ML IV (20:46)
--- NOTE | 2018-06-10 21:27 | P.PN_ITS ---
Subjective Date Patient Seen: 06/10/18 Interval history: Иван Maradiaga is an 83-year-old female with a history of dementia, bipolar affective disorder, and chronic atrial fibrillation on warfarin who was admitted for acute encephalopathy. The patient is resting in bedside chair comfortably. She has cleared sub stantially in regard to her mentation. She is significantly hard of hearing and you have to speak up. She denies headache, cough (although coughing while in the room), shortness of breath, chest pain, abdominal pain, nausea, vomiting, fever, chills, dysuria, diarrhea or constipation. She is incontinent but voiding and eliminating without difficulty. She is up ambulating minimally with assistance. Exam Vital Signs (past 8 hours): - 06/10/18 14:00 06/10/18 16:12 06/10/18 16:27 Temperature 99.1 F 98.8 F Pulse Rate 92 H 86 110 H Respiratory Rate 18 22 Blood Pressure 114/74 111/74 Pulse Oximetry 97 96 98 06/10/18 17:07 06/10/18 18:40 06/10/18 20:54 Temperature 98.6 F Pulse Rate 144 H 70 66 Respiratory Rate 20 Blood Pressure 118/75 115/57 L 132/72 Pulse Oximetry 99 Oxygen Delivery Method Room Air Oxygen Flow Rate 0 Narrative Exam Narrative: General: Elderly female sitting in bedside chair and in no acute distress, thin, appropriately interactive, significantly hard of hearing. HEENT: Normocephalic, atraumatic. Pupils equal round reactive to light. External ears without defect. Oropharynx clear and without exudate with moist mucous membranes. Neck: Supple. No lymphadenopathy or thyromegaly. Cardiovascular: Irregularly irregular without murmurs, rubs, or gallops appreciated. Pulmonary: Coarse breath sounds throughout especially and right upper lung field. Normal respiratory effort with no use of accessory muscles. Abdomen: Soft, bowel sounds present, appears nontender, nondistended. No hepatosplenomegaly or masses appreciated. Extremities: No clubbing, cyanosis, or edema. Skin: Normal temperature, turgor, and texture; no rash, ulcers, or subcutaneous nodules appreciated. Neurological: Cranial nerves grossly intact. Psychiatric: Normal mood. Alert and oriented to person only. Objective Labs Result Diagrams: 06/10/18 05:28 06/10/18 05:28 Labs: Laboratory Results - last 24 hr 06/10/18 06/10/18 06/10/18 05:28 05:28 05:28 WBC 5.7 RBC 3.70 L Hgb 11.7 L Hct 35.0 L MCV 94.5 MCH 31.7 MCHC 33.5 RDW 14.3 Plt Count 143 L Neut % (Auto) 56.9 Lymph % (Auto) 32.9 [place] % (Auto) 7.8 Eos % (Auto) 1.8 L Baso % (Auto) 0.6 Neut # (Auto) 3200 Lymph # (Auto) 1900 [place] # (Auto) 400 Eos # (Auto) 100 Baso # (Auto) 0 Sodium 145 Potassium 3.7 Chloride 117 H Carbon Dioxide 22 BUN 23 H Creatinine 1.20 H Estimated GFR 43.0 L BUN/Creatinine Ratio 19.2 Glucose 103 Calcium 9.1 Magnesium 2.2 Total Bilirubin 0.3 AST 40 H ALT 37 Alkaline Phosphatase 46 Total Protein 6.6 Albumin 3.4 L Globulin 3.2 Albumin/Globulin Ratio 1.1 Procalcitonin 0.07 Assessment & Plan Assessment & Plan narrative: Иван Maradiaga is an 83-year-old female with a history of dementia, bipolar affective disorder, and chronic atrial fibrillation on warfarin who was admitted for acute encephalopathy. 1. Acute metabolic encephalopathy, present on admission. Resolving. -Patient previously has had confusion associated with the urinary tract infection in the past. -Repeat chest x-ray demonstrated right upper lobe radiopacities, as below, and viral respiratory PCR positive for metapneumovirus. -Repeat urinalysis appears grossly infected, as below. -Will treat underlying causes as below. 2. Viral with superimposed bacterial (possibly aspiration) pneumonia, present on admission. Active. -Ordered incomplete pneumonia workup including: Respiratory viral PCR which is positive for human metapneumovirus. Sputum culture pending. Blood culture x2 have no growth to date. Did not order strep pneumonia and Legionella urine antigens as send out and will not be received likely during time patient is hospitalized. -Chest x-ray demonstrated right upper lobe radiopacity suspicious for aspiration pneumonia. -Started ceftriaxone 2 g IV daily and azithromycin 500 mg IV x 3 doses total for broad spectrum coverage and atypicals. -Discontinued IV fluids with NS at 100 mL/hr and started D5W at 100 mL/hr for free water deficit of 1.2 L as patient was not taking in adequate p.o. fluids. 3. Acute urinary tract infection, present on admission. Active. -Repeat urinalysis with culture growing gram-negative bacilli with identification and sensitivities pending. -Continue ceftriaxone as above. -Discontinued IV fluids with NS at 100 mL/hr and started D5W at 100 mL/hr for free water deficit of 1.2 L as patient was not taking in adequate p.o. fluids. 4. Chronic kidney disease stageII, present on admission. Stable. -Initial creatinine 1.4. Baseline creatinine between 1.2-1.3. Does not repr esent acute kidney injury. -Avoid nephrotoxin agents. -Continue to monitor creatinine daily. -Discontinued IV fluids with NS at 100 mL/hr and started D5W at 100 mL/hr for free water deficit of 1.2 L as patient was not taking in adequate p.o. fluids. 5. Bipolar affective disorder chronic, present on admission. Stable. -Continue home lithium 300 mg daily. -[place] level therapeutic at 1.1. 6. Dementia, chronic, present on admission. Presumed stable. 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 Her daughter reports she is progressing back to baseline. -If patient found not to have infectious etiology for metabolic encephalopathy will consider MRI. 7.. Chronic atrial fibrillation on warfarin, present on admission. Active. -Discontinued Coumadin as it is listed on her med reconciliation as 2 mg once a week. Initial INR therapeutic at 2.8. INR trended up to 3.3. Repeat INR tomorrow and clarify dose before restarting. -Currently rate is controlled on metoprolol succinate 25 mg daily. Disposition: Patient likely to discharge in 1-2 days once pneumonia and UTI have been adequately treated and mentation has improved to baseline. Quality VTE Deep Vein Thrombosis/Pulmonary Embolism Present on Admission: No
--- NOTE | 2018-06-10 21:49 | PC.NURSE ---
Evening Shift Note by Deena Olsen, Animation Artist Patient can not follow orders to swallow oral medication and will spit the medication out. Crushing the medication and administering medication along with pudding was successful. Patient stated The pills are too big in reference to Mucinex attempted to being administrated. Patient is on Soft Diet/[place]-Thick liquids after SENIOR PRODUCT ENGINEER Evaluation. Patient is rousable but has difficulty obeying commands and seems confused by directions. Metoprolol Succinate was administered early by Dr. muniz at 17:15 due to several runs of HR in the 150's/140's. Patient has call light in reach.
[2018-06-11] VITALS (11 sets, daily range): BP systolic 115–138; BP diastolic 55–86; PULSE 64–122; RESP 16–26; TEMP 34.7–37.1; O2SAT 96–100
--- NOTE | 2018-06-11 03:13 | PC.NURSE ---
Addendum entered by Delfina Slade R.N. 06/11/18 06:36: Critical Value: PT=64.5 & INR 5.4, reported to [facility] Original Note: Addendum entered by Delfina Slade R.N. 06/11/18 05:31: Patient noted to be having runs of V-tach, asymptomatic lying in bed. Provider Johnson came to bedside to assess patient and ordered a 12 lead EKG and labs. Pt has a hx of a PPM and is a DNR. Will continue to monitor patient on telemetry Original Note: Pt is alert to self, very confused. Impulsive, consistently tries to get OOB. Patient pulled her IV out, new IV inserted. Does not follow commands. Voiding in bathroom, 1 person assist holding on to her as she refuses to use walker. IVF running as ordered. Tele is A paced, afib. No pain. Lungs rhonchi. Croupy cough, weak, unable to obtain sputum sample thus far.
--- NOTE | 2018-06-11 05:22 | PM.EVENT ---
Date Patient Seen: 06/11/18 Time Patient Seen: 05:12 I was called to the patient's room to evaluate the patient related to increased ectopy and runs of ventricular tachycardia. Patient is resting the restless and moving in bed but denies chest pain or difficulty breathing and has no diaphoresis. On telemetry the patient has had recurrent episodes of ventricular tachycardia alarms. She has an underlying atrial fibrillation with what appears to be supraventricular tachycardia with aberrant conduction. A 12 lead EKG is obtained however unable to capture a run of wide be tachycardia. Patient does have a pacemaker however no pacer spikes are noted an associated my complex beats. The 12 lead shows atrial fibrillation with atrial pacing with no evidence of ischemia or infarct. Will go ahead and check a troponin and electrolytes and replete as needed.
[2018-06-11 05:40] LABS: Add Manual Diff / Slide Review NO; Basophils Absolute Auto 0 /uL (0-100); Basophils Percent Auto 0.5 % (0-2); Eosinophils Absolute Auto 100 /uL (0-450); Eosinophils Percent Auto 2.3 % (2-4); Hemoglobin 12.1 g/dL (12.0-16.0); Lymphocytes Absolute Auto 1800 /uL (1100-4500); Lymphocytes Percent Auto 28.7 % (25-40); Mean Corpuscular HGB Conc 32.7 % (30-36); Mean Corpuscular Hemoglobin 30.9 PG (26-34); Mean Corpuscular Volume 94.7 fL (80-100); Monocytes Absolute Auto 400 /uL (0-900); Monocytes Percent Auto 6.4 % (3-14); Neutrophils Absolute Auto 3900 /uL (1500-7000); Neutrophils Percent Auto 62.1 % (50-75); Platelet Count 151 X10^3/uL (150-400); Red Blood Cell Count 3.91 X10^6/uL (4.0-5.2); Red Cell Distribution Width 13.9 % (11.6-14.8); White Blood Cell Count 6.3 X10^3/uL (4.5-11.0)
[2018-06-11 05:53] LABS: Alanine Aminotransferase 37 IU/L (9-52); Albumin 3.6 g/dL (3.5-5.0); Albumin Globulin Ratio 1.1 (1.0-2.8); Alkaline Phosphatase 41 U/L (38-126); Aspartate Aminotransferase 50 IU/L (14-36); BUN Creatinine Ratio 17.5 (6-22); Bilirubin Total 0.4 mg/dL (0.2-1.3); Blood Urea Nitrogen 21 mg/dL (7-17); Carbon Dioxide 24 mmol/L (22-32); Chloride 109 mmol/L (98-107); Globulin 3.4 g/dL (1.7-4.1); Glucose 115 mg/dL (80-110); HEMOLYSIS 32 (0-50); Sodium 140 mmol/L (137-145)
[2018-06-11 06:00] LABS: Prothrombin Time 64.5 SECONDS (10.1-12.7)
[2018-06-11 06:04] LABS: Troponin I 0.016 ng/mL (0.01-0.034)
[2018-06-11 06:06] LABS: INR 5.4 (0.9-1.3)
[2018-06-11 06:07] LABS: Procalcitonin 0.05 ng/mL (<0.5)
--- NOTE | 2018-06-11 08:45 | CM.DPC ---
DCP/continued: Reviewed chart. Current d/c recommendations are for SNF at time of d/c. Daughter provided with contracted SNF list on 06-10-18. Received phone message from daughter indicating that if SNF needed [facility] choice [facility]. Placed call to [facility] spoke with admit. They are requesting clinicals for review. Faxed requested information. P: [facility] reviewing for SNF admit. If patient close to baseline when medically stable family would prefer to take her home. HARDY Dunn
[2018-06-11] MEDS: DOCUSATE ORAL LIQUID 100 MG/10 ML UDC PO ×2 (09:42→20:20)
--- NOTE | 2018-06-11 10:30 | ST.IPDYTX ---
AQUATICS GROUP FITNESS INSTRUCTOR Dysphagia Treatment AQU[employer] FITNESS INSTRUCTOR Dysphagia Treatment Start: 06/10/18 16:31 Freq: Status: Active Protocol: Document 06/11/18 15:20 TLC (Rec: 06/11/18 15:35 TLC [id number]) Dysphagia Treatment Session Time Total Visit Minutes 30 Setting Assessment Location Acute Care Visit Type Note Type Re-Evaluation Next Note Type Next Note Type Treatment Note Patient Information Identification Type Name Subjective Observations Patient was seen sitting up in the chair in her room with her daughter present. The patient fidgeted with the blanket and was pleasant, but confused. She followed directions with repetitions and visual cues. Treatment Liquids Trialed Ice Chips Thin Solids Trialed Dysphagia Mechanical Regular Administration Type Cup Single Sip Straw Oral Strategies Upright at 90 degrees Controlled Bite/Sip Size Alternate Liquids/Solids Pharyngeal Strategies Double Swallow Small Bites and Sips Alternate Liquids/Solids Treatment Activities Patient was able to self-feed with assistance, but required verbal cues and repetitions to comply with my requests due to confusion. She tolerated sips of thin liquids via teaspoon and controlled cup sips without signs of aspiration. A delayed cough was observed following a consecutive straw sip of liquids. She also coughed following a few bites of peaches. Oral residue was observed following lorena cracker trial and patient declined my offer for water to clear oral cavity indicating poor insight. When bolus sizes were controlled, no signs or symptoms of aspiration were observed. Verbal education was provided to the patient's daughter re: aspiration and pneumonia. We also discussed diet modifications and compensatory strategies to reduce aspiration risk. In addition, we talked about the option for a Modified Barium Swallow study to rule out aspiration; however, we both agreed the patient is not yet a good candidate for this given her confusion and decreased ability to follow directions. An aspiration precautions sheet was updated and hung in the patient's room . Assessment Patient Response to Treatment Good Rehab Potential Good Assessment of Improvement Patient has shown improvements from yesterday. She continues to have ronchi in her lung sounds; however, she does not show signs of aspiration during consumption of thin liquids and dysphagia mechanical textures when bolus size is controlled and she is assisted with feedings. She continues to present with confusion and requires 1:1 assistance due to decreased awareness. Her daughter is understanding of risks and precautions including the implementation of controlled cup sips only and eliminating use of straws at this time. Diet Recommendations Recommendations Upgrade Liquid Order Liquids Order Thin Diet Order Dysphagia Mechanical Medication Recommendations Crushed in [place] Comments Due to confusion Additional Dietary Needs Controlled Sips No Straws 1:1 Assistance Reminders to Use Strategies Aspiration Precautions Recommended Precautions Upright at 90 Degrees Alternate Liquids/Solids Small Bites/Sips Double Swallow Treatment Plan Placement Recommendation after Discharge [facility] Facility Appropriate for Continued Therapy Yes Therapy Recommendations Ongoing assessment of swallowing and monitoring patient for signs of aspiration. MBSS as able to tolerate if patient's symptoms worsen. Ongoing patient education and compensatory strategy training if and when patient's mentation improves. Dysphagia Goals The client will demonstrate the ability to adequately self -monitor swallowing skills and perform appropriate compensatory techniques to reduce s/s of aspiration. Family will demonstrate understanding of and compliance with recommendations.
[2018-06-11] MEDS: DEXTROSE 5% WATER 1,000 ML 125 ML IV (11:23)
--- NOTE | 2018-06-11 11:30 | PT.IPTN ---
Current Diagnoses Toxic encephalopathy (06/08/18) Altered mental status, unspecified (06/08/18) Other computer terminal operator (current) drug therapy (06/08/18) Physical Therapy Treatment Note M2 PT-IP Current Condition Start: 06/08/18 15:49 Freq: NEEDED Status: Active Protocol: Document 06/08/18 14:50 RCC (Rec: 06/08/18 16:02 RCC [id number]) Physical Therapy Current Condition Current Condition Evaluation Date 06/08/18 Treatment Diagnosis encephalopathy, impaired activity tolerance and mobility M3 PT-IP Subjective Start: 06/08/18 15:49 Freq: NEEDED Status: Active Protocol: Document 06/11/18 11:30 AB (Rec: 06/11/18 12:16 AB [id number]) Subjective Physical Therapy Visit Type Type Treatment Note Visit Start Time 11:30 Visit Stop Time 12:00 Total Visit Minutes 30 Number of HISTOLOGY TEACHER Visits 0 Physical Therapy Visit Comments Patient Comments pt agreeable to do PT Therapy Pain Assessment Pain Present Pain Present Denied Pain M4 PT-IP Mobility and Gait Start: 06/08/18 15:49 Freq: NEEDED Status: Active Protocol: Document 06/11/18 11:30 AB (Rec: 06/11/18 12:16 AB [id number]) PT-Bed Mobility Assessment Supine to Sit Supine to Sit Maximum Assistance Sit to Supine Sit to Supine Standby Assistance PT-Transfer Assessment Sit to and From Stand Sit to and from Stand Minimal Assistance Equipment Transfer Assistive Device None Gait Belt Orthotic/Prosthetic Devices or Brace: No Transfers Transfer Destination Chair Transfer Technique Stand Step Pivot Transfer Ability Level of Assist Moderate Assistance Gait Assessment Gait Gait Assistance Required: Minimum Assistance Distance (Feet) 30 Able to Maintain Weight Bearing Status Yes During Gait Assistive Devices Assistive Device Gait Belt Front Wheeled Walker Orthotic/Prosthetic Devices or Brace: No Gait Deviations General Gait Pattern Decreased Stride Length Decreased Feet Clearance Factors Limiting Gait Function Factors Limiting Gait Function Decreased Activity Tolerance Decreased Strength Difficulty Following Directions Poor Balance Poor Safety Awareness Comments Gait Comments pt ambulated in room using FWW min A and max cues for directions and requiring assistance with FWW use. ambulated ~ 3 ft without AD min A and cues. M5 PT-IP Objective Assessments Start: 06/08/18 15:49 Freq: NEEDED Status: Active Protocol: Document 06/08/18 14:50 RCC (Rec: 06/08/18 16:02 RCC [id number]) Orientation Orientation/Cognition Level of Alertness Confusional State Comments answers to name but otherwise unable to verbalize much Strength Comments Strength Comments unable to assess d/t cognitive impairment Sensation Assessment Comments Sensation Comments unable to assess d/t cognitive impairment M6 PT-IP Treatment Start: 06/08/18 15:49 Freq: NEEDED Status: Active Protocol: Document 06/11/18 11:30 AB (Rec: 06/11/18 12:16 AB [id number]) Physical Therapy Treatment Education Education Provided Safety M7 PT-IP Assessment and Plan Start: 06/08/18 15:49 Freq: NEEDED Status: Active Protocol: Document 06/11/18 11:30 AB (Rec: 06/11/18 12:16 AB [id number]) PT Summary Assessment and Plan Potential Rehabilitation Potential Fair Summary Impairments Strength Balance Cognition Bed Mobility Transfers Gait Activity Tolerance Assessment Summary pt requiring min to mod A with mobility and requires max cues with all tasks. d/c depending on progress but at this time will require SNF rehab. Goals Bed Mobility Goal Independent Transfer Goal Independent Gait Goal Standby Assistance Gait Distance 300 Other Goals up/down 2 steps with R rail and CGA. Days to Meet Goals 5 Frequency of Treatment Frequency Of Treatment Twice a Day Treatment Plan Physical Therapy Treatment Plan Bed Mobility Training Transfer Training Gait Training Therapeutic Exercise Balance Retraining Discharge Planning Neuromuscular Re-ed Other Recommendations and Next Treatment progress gait and mobility as Focus tolerated, continue to assess safety awareness Recommendations To Nursing Amount of Assist Needed 1 Person Assist Discharge Recommendations PT Discharge Recommendations SNF Rehab
--- NOTE | 2018-06-11 11:33 | PC.NURSE ---
Day Shift-Pt able to state her full name, states her birthdate as May 17, 1900. Pt fidgets, toying with telemetry lines, gown. Soft-spoken, denies pain, discomfort, hurting, short of breath. O2 98% on RA. Upper AE coarse, Mid to lower lungs are diminished with expiratory rhonchi, rales. Pt had scant/small clear thick sputum, pt had placed in tissue before a sample could be collected for lab. Pt 1PA OOB. High fall risk precautions in place, bed/chair alarm used. Pt reminded of what button to push for help, but does not end using. Pt impulsive when needing to go to the BR. Brief update given to pt's daughter in room.
--- NOTE | 2018-06-11 15:41 | PM.PN.1 ---
Subjective Date Patient Seen: 06/11/18 Time Patient Seen: 15:41 Interval history: Follow up on acute encephalopathy secondary to UTI and pneumonia Patient seen at bedside. She is doing well. Overnight, telemetry reading reported wide complex tachycardia run. EKG was performed which showed AFib with atrial pacing. Patient was asymptomatic during the episode. Electrolytes were stable. Exam Vital Signs (past 8 hours): - 06/11/18 08:00 06/11/18 09:40 06/11/18 11:52 Temperature 98 F 98.5 F Pulse Rate 122 H 84 64 Respiratory Rate 18 18 Blood Pressure 117/55 L 115/67 Pulse Oximetry 96 98 98 06/11/18 13:19 06/11/18 15:00 Temperature Pulse Rate 66 111 H Respiratory Rate 16 18 Blood Pressure 124/76 Pulse Oximetry 96 99 Fraction of Inspired Oxygen 21 Oxygen Delivery Method Room Air Oxygen Flow Rate 0 Narrative Exam Narrative: General: Elderly female in no acute distress. Significantly hard of hearing. HEENT: Normocephalic, atraumatic. Pupils equal round reactive to light. Neck: Supple. No lymphadenopathy or thyromegaly. Cardiovascular: Irregularly irregular without murmurs, rubs, or gallops appreciated. Pulmonary: Coarse breath sounds throughout especially and right upper lung field. Normal respiratory effort with no use of accessory muscles. Abdomen: Soft, bowel sounds present, appears nontender, nondistended. No hepatosplenomegaly or masses appreciated. Extremities: No clubbing, cyanosis, or edema. Skin: Normal temperature, turgor, and texture; no rash, ulcers, or subcutaneous nodules appreciated. Neurological: Cranial nerves grossly intact. Patient is very hard of hearing. Psychiatric: Normal mood. Alert and oriented to person only. Objective Labs Result Diagrams: 06/11/18 05:24 06/11/18 05:24 Labs: Laboratory Results - last 24 hr 06/11/18 06/11/18 06/11/18 05:24 05:24 05:24 WBC 6.3 RBC 3.91 L Hgb 12.1 Hct 37.0 MCV 94.7 MCH 30.9 MCHC 32.7 RDW 13.9 Plt Count 151 Neut % (Auto) 62.1 Lymph % (Auto) 28.7 Fannin % (Auto) 6.4 Eos % (Auto) 2.3 Baso % (Auto) 0.5 Neut # (Auto) 3900 Lymph # (Auto) 1800 Fannin # (Auto) 400 Eos # (Auto) 100 Baso # (Auto) 0 PT 64.5 H D INR 5.4 H* Sodium 140 Potassium 4.0 Chloride 109 H Carbon Dioxide 24 BUN 21 H Creatinine 1.20 H Estimated GFR 43.0 L BUN/Creatinine Ratio 17.5 Glucose 115 H Calcium 9.0 Magnesium Total Bilirubin 0.4 AST 50 H ALT 37 Alkaline Phosphatase 41 Troponin I Total Protein 7.0 Albumin 3.6 Globulin 3.4 Albumin/Globulin Ratio 1.1 Procalcitonin 06/11/18 06/11/18 06/11/18 05:24 05:24 05:24 WBC RBC Hgb Hct MCV MCH MCHC RDW Plt Count Neut % (Auto) Lymph % (Auto) Fannin % (Auto) Eos % (Auto) Baso % (Auto) Neut # (Auto) Lymph # (Auto) Fannin # (Auto) Eos # (Auto) Baso # (Auto) PT INR Sodium Potassium Chloride Carbon Dioxide BUN Creatinine Estimated GFR BUN/Creatinine Ratio Glucose Calcium Magnesium 2.0 Total Bilirubin AST ALT Alkaline Phosphatase Troponin I 0.016 Total Protein Albumin Globulin Albumin/Globulin Ratio Procalcitonin 0.05 Assessment & Plan Assessment & Plan narrative: 83yo F with PMH of dementia, bipolar affective disorder, and chronic atrial fibrillation on warfarin who was admitted for acute encephalopathy. She was found to have UTI and RUL PNA. 1. Acute metabolic encephalopathy -Resolving, likely due to UTI/PNA -Repeat chest x-ray demonstrated right upper lobe radiopacities, and viral respiratory PCR positive for metapneumovirus. -Repeat urinalysis appears grossly infected. -Continue to treat underlying causes and monitor for improvement. 2. Viral with superimposed bacterial (possibly aspiration) pneumonia - PCR is positive for human metapneumovirus. Blood culture x2 have no growth to date. Did not order strep pneumonia and Legionella urine antigens as send out and will not be received likely during time patient is hospitalized. No sputum collected for cultures -Chest x-ray demonstrated right upper lobe radiopacity suspicious for aspiration pneumonia. -Continue ceftriaxone 2 g IV daily and azithromycin 500 mg IV x 3 doses total for broad spectrum coverage and atypicals. Will consider switching to PO tomorrow -Continue D5W at 100 mL/hr 3. Acute urinary tract infection -Repeat urinalysis with culture growing gram-negative bacilli with identification and sensitivities pending. -Continue ceftriaxone IV and consider switching to PO abx tomorrow. -Continue D5W at 100 mL/hr 4. Chronic kidney disease stage II -Initial creatinine 1.4. Baseline creatinine between 1.2-1.3. Does not represent acute kidney injury. -Avoid nephrotoxin agents. -Continue to monitor creatinine daily. 5. Bipolar affective disorder chronic -Continue home lithium 300 mg daily. -[place] level therapeutic at 1.1. 6. 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 Her daughter reports she is progressing back to baseline. 7. Chronic atrial fibrillation -On coumadin therapy at home. INR 5.4 this am -Hold Coumadin at this time and recheck INR levels in am -Patient does not have acute bleed or plans for surgery, no need to acutely reverse INR. -Continue metoprolol succinate 25 mg daily. Disposition: Pending cognitive evaluation by Speech. Possible discharge in 1-2 days if patient is stable to SNF/Rehab. Quality VTE Deep Vein Thrombosis/Pulmonary Embolism Present on Admission: No
--- NOTE | 2018-06-11 16:24 | PT.IPTN ---
Current Diagnoses Toxic encephalopathy (06/08/18) Altered mental status, unspecified (06/08/18) Other termite control service representative (current) drug therapy (06/08/18) Physical Therapy Treatment Note M2 PT-IP Current Condition Start: 06/08/18 15:49 Freq: NEEDED Status: Active Protocol: Document 06/08/18 14:50 [facility] (Rec: 06/08/18 16:02 [facility] [id number]) Physical Therapy Current Condition Current Condition Evaluation Date 06/08/18 Treatment Diagnosis encephalopathy, impaired activity tolerance and mobility M3 PT-IP Subjective Start: 06/08/18 15:49 Freq: NEEDED Status: Active Protocol: Document 06/11/18 16:11 SA (Rec: 06/11/18 16:24 SA [id number]) Subjective Physical Therapy Visit Type Type Treatment Note Visit Start Time 14:58 Visit Stop Time 15:16 Total Visit Minutes 18 Notes Pt in process of getting OOB when this CLARITY DEVELOPER entered room. Number of CLARITY DEVELOPER Visits 1 Physical Therapy Visit Comments Patient Comments Pt wants to go to bathroom. Therapy Pain Assessment Pain When Pain Assessed During Mobility Pain Present Pain Present Denied Pain M4 PT-IP Mobility and Gait Start: 06/08/18 15:49 Freq: NEEDED Status: Active Protocol: Document 06/11/18 16:11 SA (Rec: 06/11/18 16:24 SA [id number]) PT-Bed Mobility Assessment Rolling Type of Rolling Roll to Right Level of Assist Standby Assistance Supine to Sit Supine to Sit Standby Assistance Head of Bed Elevated Sit to Supine Sit to Supine Standby Assistance Scooting Scooting to Edge of Bed Standby Assistance Scooting Up and Down in Bed Standby Assistance PT-Transfer Assessment Sit to and From Stand Sit to and from Stand Contact Guard Assistance Equipment Transfer Assistive Device Gait Belt Transfers Transfer Destination Bed Toilet Transfer Technique Stand Step Pivot Transfer Ability Level of Assist Minimal Assistance 1 Person Assistance Comments Mobility Comments Pt unable to follow safety cues or able to re-direct. Impulsive with movements and unable to use FWW safely. Assisted pt with transfers on/ off toilet with CGA-Min A and cues for safety. Gait Assessment Gait Gait Assistance Required: Minimum Assistance Distance (Feet) 25 Able to Maintain Weight Bearing Status Yes During Gait Assistive Devices Assistive Device Gait Belt Orthotic/Prosthetic Devices or Brace: No Gait Deviations General Gait Pattern Decreased Stride Length Decreased Feet Clearance Factors Limiting Gait Function Factors Limiting Gait Function Decreased Activity Tolerance Decreased Strength Difficulty Following Directions Poor Balance Poor Safety Awareness Comments Gait Comments Attempted to have pt use FWW but she repeatedly moved it off to side attempting to step around it. Pt with no awareness of her IV line and needed Max A to manage that and not walk away from it. M5 PT-IP Objective Assessments Start: 06/08/18 15:49 Freq: NEEDED Status: Active Protocol: Document 06/08/18 14:50 [facility] (Rec: 06/08/18 16:02 [facility] [id number]) Orientation Orientation/Cognition Level of Alertness Confusional State Comments answers to name but otherwise unable to verbalize much Strength Comments Strength Comments unable to assess d/t cognitive impairment Sensation Assessment Comments Sensation Comments unable to assess d/t cognitive impairment M6 PT-IP Treatment Start: 06/08/18 15:49 Freq: NEEDED Status: Active Protocol: Document 06/11/18 16:11 SA (Rec: 06/11/18 16:24 SA [id number]) Physical Therapy Treatment Education Education Provided Safety M7 PT-IP Assessment and Plan Start: 06/08/18 15:49 Freq: NEEDED Status: Active Protocol: Document 06/11/18 16:11 SA (Rec: 06/11/18 16:24 SA [id number]) PT Summary Assessment and Plan Potential Rehabilitation Potential Fair Summary Impairments Strength Balance Cognition Bed Mobility Transfers Gait Activity Tolerance Assessment Summary Pt with poor cognition and safety awareness. Min A with ambulation d/t poor balane and impulsivity. Recommend SNF Rehab Frequency of Treatment Frequency Of Treatment Twice a Day Treatment Plan Physical Therapy Treatment Plan Bed Mobility Training Transfer Training Gait Training Therapeutic Exercise Balance Retraining Discharge Planning Neuromuscular Re-ed Recommendations To Nursing Amount of Assist Needed 1 Person Assist Discharge Recommendations PT Discharge Recommendations SNF Rehab
--- NOTE | 2018-06-11 17:46 | OT.IP.TRT ---
Current Diagnoses Toxic encephalopathy (06/08/18) Altered mental status, unspecified (06/08/18) Other termite control representative (current) drug therapy (06/08/18) Occupational Therapy Treatment Note M2 OT-IP Current Condition Start: 06/09/18 17:08 Freq: Status: Active Protocol: Document 06/09/18 11:50 [facility] (Rec: 06/09/18 17:46 [facility] [id number]) Occupational Therapy Current Condition Current Condition Evaluation Date 06/09/18 Treatment Diagnosis Increased confusion, weakness Diagnosis Onset Date 06/08/18 M3 OT- IP Subjective and Pain Start: 06/09/18 17:08 Freq: Status: Active Protocol: Document 06/11/18 17:45 [facility] (Rec: 06/11/18 17:46 [facility] [id number]) OT- Subjective Occupational Therapy Visit Type Type Administrative Note Notes Not able to see pt for OT, pt able to see PT today twice for mobility needs and nursing able to assist for self care. To see pt tomorrow.
--- NOTE | 2018-06-11 19:59 | PC.NURSE ---
Evening Shift Note by Deena Olsen, Mold Design Engineer Patient verbalizing and following directions slightly better than yesterday, patient has been attempting to ambulate independently and get out of bed by herself. Patient had good appetite. Family stated that patient was closer to her baseline but still not as cognitively there as before admission. Patient requires all oral medication in pill-form to be crushed as she still chews/spits out the medications. Patient was in good mood for the shift and was very polite. Patient reminded to call for help getting out of bed, call light in reach.
[2018-06-11] MEDS: LITHIUM 300 MG IR CAPSULE PO (20:17)
[2018-06-11] MEDS: SODIUM CHLORIDE 0.9% FLUSH 10 ML IV (20:20)
[2018-06-11] MEDS: MONTELUKAST 10 MG TABLET PO (20:20)
[2018-06-11] MEDS: METOPROLOL ER 25 MG TABLET PO (20:20)
[2018-06-11] MEDS: SENNOSIDES 8.6 MG TABLET 17.2 MG PO (20:21)
[2018-06-11] MEDS: guaiFENesin ER 600 MG TAB 1200 MG PO (20:21)
[2018-06-11] MEDS: AZITHROMYCIN 500 MG in DEXTROSE 5% IN WATER 250 ML IV (20:27)
[2018-06-12] VITALS (11 sets, daily range): BP systolic 97–135; BP diastolic 42–83; PULSE 60–99; RESP 16–20; TEMP 36.7–37.4; O2SAT 95–100
[2018-06-12 05:43] LABS: Add Manual Diff / Slide Review NO; Basophils Absolute Auto 0 /uL (0-100); Basophils Percent Auto 0.5 % (0-2); Eosinophils Absolute Auto 200 /uL (0-450); Hematocrit 30.8 % (36-46); Hemoglobin 10.4 g/dL (12.0-16.0); Lymphocytes Absolute Auto 1100 /uL (1100-4500); Lymphocytes Percent Auto 26.3 % (25-40); Mean Corpuscular Hemoglobin 31.6 PG (26-34); Mean Corpuscular Volume 93.1 fL (80-100); Monocytes Absolute Auto 400 /uL (0-900); Monocytes Percent Auto 8.8 % (3-14); Neutrophils Absolute Auto 2600 /uL (1500-7000); Neutrophils Percent Auto 60.4 % (50-75); Platelet Count 132 X10^3/uL (150-400); Red Cell Distribution Width 13.8 % (11.6-14.8); White Blood Cell Count 4.3 X10^3/uL (4.5-11.0)
[2018-06-12 05:48] LABS: Prothrombin Time 54.2 SECONDS (10.1-12.7)
[2018-06-12 05:49] LABS: INR 4.6 (0.9-1.3)
[2018-06-12 05:55] LABS: BUN Creatinine Ratio 19.1 (6-22); Blood Urea Nitrogen 21 mg/dL (7-17); Calcium 8.8 mg/dL (8.4-10.2); Carbon Dioxide 23 mmol/L (22-32); Chloride 109 mmol/L (98-107); Estimated Glomerular Filt Rate 47.6 mL/min (>60); Glucose 124 mg/dL (80-110); HEMOLYSIS < 15 (0-50); Potassium 3.9 mmol/L (3.4-5.1); Sodium 140 mmol/L (137-145)
[2018-06-12] MEDS: DEXTROSE 5% WATER 1,000 ML 125 ML IV ×2 (06:15→14:04)
[2018-06-12] MEDS: DOCUSATE ORAL LIQUID 100 MG/10 ML UDC PO (08:47)
--- NOTE | 2018-06-12 09:50 | OT.IP.TRT ---
Current Diagnoses Toxic encephalopathy (06/08/18) Altered mental status, unspecified (06/08/18) Other manager terminal (current) drug therapy (06/08/18) Occupational Therapy Treatment Note M2 OT-IP Current Condition Start: 06/09/18 17:08 Freq: Status: Active Protocol: Document 06/09/18 11:50 [facility] (Rec: 06/09/18 17:46 [facility] [id number]) Occupational Therapy Current Condition Current Condition Evaluation Date 06/09/18 Treatment Diagnosis Increased confusion, weakness Diagnosis Onset Date 06/08/18 M3 OT- IP Subjective and Pain Start: 06/09/18 17:08 Freq: Status: Active Protocol: Document 06/12/18 09:34 [facility] (Rec: 06/12/18 09:50 [facility] [id number]) OT- Subjective Occupational Therapy Visit Type Type Treatment Note Visit Start Time 08:30 Visit Stop Time 09:20 Total Visit Minutes 50 Occupational Therapy Visit Comments Patient Comments Pt more alert today, cooperative and wanting to eat breakfast. OT Pain Assessment Pain When Pain Assessed At Rest Pain Present Pain Present Denied Pain M4 OT- IP ADL's Start: 06/09/18 17:08 Freq: Status: Active Protocol: Document 06/12/18 09:34 [facility] (Rec: 06/12/18 09:50 [facility] [id number]) OT [id number]-[id number]-[id number] General Evaluation Self-Feeding Ability Standby Assistance Areas Needing Assistance Cutting Food Comments OT Self-Feeding Comments Pt able to sequence through the task of eating appropriately, able to use utensils accurately, and drink from cup and water bottle through straw. OT ADL-Grooming General Evaluation Areas Needing Assistance Retrieving/Set-up of Grooming Items Comments OT Grooming Comments Pt able to wash hands and face afetr set-up of wash cloth. M5 OT- IP IADL's Start: 06/09/18 17:08 Freq: Status: Active Protocol: Document 06/09/18 11:50 [facility] (Rec: 06/09/18 17:46 [facility] [id number]) OT-Instrumental Activities of Daily Living Medication Management Medication Management Caregiver Administers Money Management Money Management Caregiver Provides Assistance Meal Preparation Meal Preparation Caregiver Provides Assist Driving Driving Caregiver Provides Assist M6 OT- IP Functional Cognition Start: 06/09/18 17:08 Freq: Status: Active Protocol: Document 06/12/18 09:34 [facility] (Rec: 06/12/18 09:50 [facility] [id number]) Cognitive Factors Limiting Selfcare Function Cognitive Ability Level of Alertness Alert Patient Orientation Name Attention Span Ability Capable of Focused Attention Unable to Sustain Attention Ability to Follow Commands Able to Follow One Step Commands Memory Description Immediate Impaired Short Term Impaired Safety Awareness Decreased Recall of Precautions Decreased Ability to Apply Precautions Problem Solving Ability Unable to Identify Errors Needs Assist to Identify Solutions Executive Function Ability Unable to Organize Plans Unable to Remember Details Cognitive Comments Cognitive Assessment Comments Pt able to partake in simple conversation today about her living in [place] in the past, hobbies of sewing and collecting fabrics, however at times not able to follow conservation and just smiles . M7 OT- IP Mobility and Balance Start: 06/09/18 17:08 Freq: Status: Active Protocol: Document 06/10/18 10:53 [facility] (Rec: 06/10/18 17:02 [facility] [id number]) OT-Transfer Assessment Sit to and From Stand Sit to and from Stand Contact Guard Assistance Transfers Transfer Ability Contact Guard Assistance Technique Transfer Destination Chair Devices Transfer Assistive Devices Gait Belt Front Wheeled Walker Comments Mobility Comments Pt dislikes FWW and pushes it aside to walk to sink without it with CGA. OT- Gait Assessment Gait Gait Assistance Required: Contact Guard Assist Distance (Feet) 20 Assistive Devices Assistive Device Gait Belt Comments Gait Ability Comments CGA for balance and safety. OT- Balance Assessment Sitting Balance and Reactions Static Sitting Balance Ability Good Standing Balance and Reactions Static Standing Balance Ability Fair M8 OT- IP Objective Assessments Start: 06/09/18 17:08 Freq: Status: Active Protocol: Document 06/09/18 11:50 [facility] (Rec: 06/09/18 17:46 [facility] [id number]) OT Strength Comments Strength Comments Pt per task of eating and transfers, strength at least 3 -/5 but unable to formally assess. M9 OT- IP Assessment and Plan Start: 06/09/18 17:08 Freq: Status: Active Protocol: Document 06/12/18 09:34 [facility] (Rec: 06/12/18 09:50 [facility] [id number]) OT Summary Assessment and Plan Potential Rehabilitation Potential Good Analytic Complexity at Evaluation Low Summary OT Impairments Strength Balance Functional Cognition Functional Mobility Self-Feeding Grooming Dressing Toileting Bathing Toilet Transfers Shower Transfers Progress Towards Goals Slow Progress due to Medical Issues Slow Progress due to Cognition Assessment Summary Pt needing less supervision for meals , on eval MAX vc and not only minimal vc for eating safety. Pt would still benefit form skilled rehab to help increase overall strength and endurance to return back to baseline of superivision for ADl's and MOD I for mobility needs. Goals Self-Feeding Goal Standby Assistance Grooming Goal Standby Assistance Dressing Goal Minimal Assistance Toileting Goal Minimal Assistance Bathing Goal Moderate Assistance Toilet Transfer Goal Standby Assistance Shower Transfer Goal Minimal Assistance Patient/Caregiver Education Goal Caregiver Independent Assisting Patient Days to Meet Goals 4 Frequency of Treatment Frequency Of Treatment Once a Day Treatment Plan OT Treatment Plan ADL Training Functional Cognition Training Functional Mobility Patient/Family Education Discharge Planning Other Treatment Recommendations and Next shower Treatment Focus Discharge Recommendations OT Discharge Recommendations SNF Rehab
--- NOTE | 2018-06-12 11:08 | ST.IPDYTX ---
Care Team Visit Care Team Role Provider Type Americo Clements MD Primary Care Provider Physician Specialty: Internal Medicine Address: [address] [place] [address], [phone] Email: Davina Alejandro DO Emergency Provider Physician Specialty: Emergency Medicine Address: [address] [place] [id number] Email: Denise Leslie MD Admit Provider Physician Attending Provider Specialty: Internal Medicine Address: [address] [place] [id number] Email: [email or web address] Dysphagia Treatment [facility] [employer] [facility] Dysphagia Treatment Start: 06/10/18 16:31 Freq: Status: Active Protocol: Document 06/12/18 10:44 [facility] (Rec: 06/12/18 11:07 [facility] [id number]) Dysphagia Treatment Session Time Visit Start Time 10:05 Visit Stop Time 10:30 Total Visit Minutes 25 Setting Assessment Location Acute Care Visit Type Note Type Treatment Note Next Note Type Next Note Type Treatment Note Patient Information Identification Type Name Other Subjective Observations Pt in bed napping in upright position. Greeted me with smile and reciprocal good morning Treatment Liquids Trialed Thin Administration Type Cup Single Sip Straw Oral Strategies Upright at 90 degrees Pharyngeal Strategies Sitting Upright (90 deg) Treatment Activities Pt trial with thin liquids using straw. controlled sip implemented. No s/sx aspiration. OM examination noted pt better able to follow directions. Lingual tremor continues, Dr. Frank called in to observe. Tremor appears to be slightly better than at initial evaluation. Diadochokinetic assessment indicated improved lingual and palatal movement, most likely related to cognitive clearing . Assessment Patient Response to Treatment Good Assessment of Improvement Patient has shown improvements from yesterday. She continues to cough large amounts of phlegm/mucous; however, she does not show signs of aspiration during consumption of thin liquids. She continues to present with confusion and requires 1:1 assistance due to decreased awareness. Her daughter is understanding of risks and precautions including the implementation of controlled cup sips. Monitor use of straws for maintaining control of liquid flow. Diet Recommendations Recommendations Continue Current Diet Liquids Order Thin Diet Order Dysphagia Mechanical Medication Recommendations Crushed in Carrier Comments Due to confusion Additional Dietary Needs Controlled Sips No Straws 1:1 Assistance Reminders to Use Strategies Aspiration Precautions Recommended Precautions Upright at 90 Degrees Alternate Liquids/Solids Small Bites/Sips Double Swallow Treatment Plan Placement Recommendation after Discharge [facility] Facility Appropriate for Continued Therapy Yes Therapy Recommendations Ongoing assessment of swallowing and monitoring patient for signs of aspiration. MBSS as able to tolerate if patient's symptoms worsen. Ongoing patient education and compensatory strategy training if and when patient's mentation improves. Dysphagia Goals The client will demonstrate the ability to adequately self -monitor swallowing skills and perform appropriate compensatory techniques to reduce s/s of aspiration. Family will demonstrate understanding of and compliance with recommendations.
--- NOTE | 2018-06-12 11:30 | PC.NURSE ---
Day shift: Pt sitting up in bed and asleep. BP taken 2 times. Founf to be low. Made Pt supine with feet elevated and BP came up to 124/42. Told Dr Lino and verbal order for 500ml bolus NS. Will continue to monitor.
[2018-06-12] MEDS: SODIUM CHLORIDE 0.9% 500 ML 1000 ML IV (11:42)
--- NOTE | 2018-06-12 11:51 | P.PN_ITS ---
Subjective Date Patient Seen: 06/12/18 Time Patient Seen: 11:47 Interval history: Follow up on acute encephalopathy secondary to UTI and pneumonia Patient seen at bedside. She is doing well, however according to family she is not back to baseline. This morning patient's Hb has dropped to 10.4 however suspecting lab error. Patient was also orthostatic early in the morning. She is working with speech a little, who cleared her for soft diet given tongue fasciculations. Exam Vital Signs (past 8 hours): - 06/12/18 06:05 06/12/18 08:14 06/12/18 11:00 Temperature 98.3 F 98.0 F Pulse Rate 78 66 Respiratory Rate 16 18 Blood Pressure 129/83 124/42 L Pulse Oximetry 100 96 99 Fraction of Inspired Oxygen 21 Oxygen Delivery Method Room Air Oxygen Flow Rate 0 Narrative Exam Narrative: General: Elderly female in no acute distress. Significantly hard of hearing. HEENT: Normocephalic, atraumatic. Pupils equal round reactive to light. Tongue fasciculations noted on tongue protrusion. Neck: Supple. No lymphadenopathy or thyromegaly. Cardiovascular: Irregularly irregular without murmurs, rubs, or gallops appreciated. Pulmonary: Coarse breath sounds throughout especially and right upper lung field. Normal respiratory effort with no use of accessory muscles. Abdomen: Soft, bowel sounds present, appears nontender, nondistended. No hepatosplenomegaly or masses appreciated. Extremities: No clubbing, cyanosis, or edema. Skin: Normal temperature, turgor, and texture; no rash, ulcers, or subcutaneous nodules appreciated. Neurological: Cranial nerves grossly intact. Patient is very hard of hearing. Follows commands. Psychiatric: Normal mood. Alert and oriented to person only. Objective Labs Result Diagrams: 06/12/18 05:19 06/12/18 05:19 Labs: Laboratory Results - last 24 hr 06/12/18 06/12/18 06/12/18 05:19 05:19 05:19 WBC 4.3 L RBC 3.30 L Hgb 10.4 L Hct 30.8 L MCV 93.1 MCH 31.6 MCHC 34.0 RDW 13.8 Plt Count 132 L Neut % (Auto) 60.4 Lymph % (Auto) 26.3 [place]roy[place] % (Auto) 8.8 Eos % (Auto) 4.0 Baso % (Auto) 0.5 Neut # (Auto) 2600 Lymph # (Auto) 1100 [place] # (Auto) 400 Eos # (Auto) 200 Baso # (Auto) 0 PT 54.2 H D INR 4.6 H* Sodium 140 Potassium 3.9 Chloride 109 H Carbon Dioxide 23 BUN 21 H Creatinine 1.10 H Estimated GFR 47.6 L BUN/Creatinine Ratio 19.1 Glucose 124 H Calcium 8.8 Assessment & Plan Assessment & Plan narrative: 83yo F with PMH of dementia, bipolar affective disorder, and chronic atrial fibrillation on warfarin who was admitted for acute encephalopathy. She was found to have UTI and RUL PNA. 1. Acute metabolic encephalopathy -Resolving, likely due to UTI/PNA -Repeat chest x-ray demonstrated right upper lobe radiopacities, and viral respiratory PCR positive for metapneumovirus. -Repeat urinalysis appears grossly infected. -Continue to treat underlying causes and monitor for improvement. 2. Viral with superimposed bacterial (possibly aspiration) pneumonia - PCR is positive for human metapneumovirus. Blood culture x2 have no growth to date. Did not order strep pneumonia and Legionella urine antigens as send out and will not be received likely during time patient is hospitalized. No sputum collected for cultures -Chest x-ray demonstrated right upper lobe radiopacity suspicious for aspiration pneumonia. -Patient received 3 days of Azithromycin 500 mg IV x 3 doses and Ceftriaxone IV. Will switch to Levaquin 750mg PO Daily. -Continue D5W at 100 mL/hr 3. Orthostatic Hypotension - BP dropped to 70s/50s upon standing but went back to 120s/40s on laying down - Will give 500cc bolus on top of already running IVF - Will decrease Metoprolol to 12.5mg PO Daily - Monitor BP 4. Acute urinary tract infection -Repeat urinalysis with culture growing gram-negative bacilli with identification and sensitivities pending. -Continue ceftriaxone IV and consider switching to PO abx tomorrow. -Continue D5W at 100 mL/hr 5. Chronic kidney disease stage II -Cr 1.1, at baseline -Avoid nephrotoxin agents. -Continue to monitor creatinine daily. 6. Bipolar affective disorder chronic -Continue home lithium 300 mg daily. -[place] level therapeutic at 1.1. 7. Dementia -Patient has history of CVA with dementia at baseline, however according to daughter she is still not where she was prior to hospitalization -Will continue to work with PT 8. Chronic atrial fibrillation -On coumadin therapy at home. INR 4.6 this am -Hold Coumadin at this time and recheck INR levels in am -Patient does not have acute bleed or plans for surgery, no need to acutely re verse INR. -Continue metoprolol succinate 12.5 mg daily. 9. Tongue Fasciculations - incited by protruding tongue but stable while back - Possibly due to lithium use - Monitor Disposition: Patient still needs to work with PT. Will likely need SNF, as she is not back to baseline strength mccloud, according to family. Quality VTE Deep Vein Thrombosis/Pulmonary Embolism Present on Admission: No
--- NOTE | 2018-06-12 12:04 | PT.IPTN ---
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 will check on pt in afternoon.
[2018-06-12 12:10] LABS: Hematocrit 30.2 % (36-46); Hemoglobin 10.2 g/dL (12.0-16.0)
--- NOTE | 2018-06-12 14:50 | PT.IPTN ---
Current Diagnoses Toxic encephalopathy (06/08/18) Altered mental status, unspecified (06/08/18) Other buttermaker continuous churn (current) drug therapy (06/08/18) Physical Therapy Treatment Note M2 PT-IP Current Condition Start: 06/08/18 15:49 Freq: NEEDED Status: Active Protocol: Document 06/08/18 14:50 RCC (Rec: 06/08/18 16:02 RCC [id number]) Physical Therapy Current Condition Current Condition Evaluation Date 06/08/18 Treatment Diagnosis encephalopathy, impaired activity tolerance and mobility M3 PT-IP Subjective Start: 06/08/18 15:49 Freq: NEEDED Status: Active Protocol: Document 06/12/18 14:38 SA (Rec: 06/12/18 14:50 SA [email or web address]) Subjective Physical Therapy Visit Type Type Treatment Note Visit Start Time 13:42 Visit Stop Time 14:05 Total Visit Minutes 23 Notes Pt finishing up bolus. Grandson in room, agreeable to PT. Number of AGRICULTURAL TECHNICAL OFFICER Visits 2 Physical Therapy Visit Comments Patient Comments Pt more alert today and able to answer questions more appropriatly. Therapy Pain Assessment Pain When Pain Assessed During Mobility Pain Present Pain Present Denied Pain M4 PT-IP Mobility and Gait Start: 06/08/18 15:49 Freq: NEEDED Status: Active Protocol: Document 06/12/18 14:38 SA (Rec: 06/12/18 14:50 SA [email or web address]) PT-Bed Mobility Assessment Rolling Type of Rolling Roll to Right Level of Assist Minimal Assistance Supine to Sit Supine to Sit Minimal Assistance Sit to Supine Sit to Supine Contact Guard Assistance Scooting Scooting to Edge of Bed Standby Assistance Scooting Up and Down in Bed Standby Assistance PT-Transfer Assessment Sit to and From Stand Sit to and from Stand Contact Guard Assistance Equipment Transfer Assistive Device Gait Belt Orthotic/Prosthetic Devices or Brace: No Comments Mobility Comments BP checked in SUP at 116/83. Upon standing pt felt a little dizzy, BP checked at EOB at 92/60. Pt slow to process cues , needs concise, clear VCs. Gait Assessment Comments Gait Comments Unable today, BP still low with postion changes but better than this AM. Pt with c /o feeling dizzy with standing . M5 PT-IP Objective Assessments Start: 06/08/18 15:49 Freq: NEEDED Status: Active Protocol: Document 06/08/18 14:50 RCC (Rec: 06/08/18 16:02 RCC [id number]) Orientation Orientation/Cognition Level of Alertness Confusional State Comments answers to name but otherwise unable to verbalize much Strength Comments Strength Comments unable to assess d/t cognitive impairment Sensation Assessment Comments Sensation Comments unable to assess d/t cognitive impairment M6 PT-IP Treatment Start: 06/08/18 15:49 Freq: NEEDED Status: Active Protocol: Document 06/12/18 14:38 SA (Rec: 06/12/18 14:50 SA [email or web address]) Physical Therapy Treatment Exercises Exercises Ankle Pumps Heel Slides Straight Leg Raises Education Education Provided Safety Other Treatments Other Treatment Performed Pt needed some AA initially with LE exercise d/t processing not lack of strength. M7 PT-IP Assessment and Plan Start: 06/08/18 15:49 Freq: NEEDED Status: Active Protocol: Document 06/12/18 14:38 SA (Rec: 06/12/18 14:50 SA [email or web address]) PT Summary Assessment and Plan Summary Impairments Strength Balance Cognition Bed Mobility Transfers Gait Activity Tolerance Assessment Summary Pt slightly more clear today but still with difficulty processing cues/instruction. BPs better than this morning but still somewhat orthostatic . Frequency of Treatment Frequency Of Treatment Twice a Day Recommendations To Nursing Amount of Assist Needed 1 Person Assist Discharge Recommendations PT Discharge Recommendations SNF Rehab
[2018-06-12] MEDS: DEXTROSE 5% WATER 1,000 ML 100 ML IV ×2 (16:19→22:27)
[2018-06-12] MEDS: LITHIUM 300 MG IR CAPSULE PO (19:28)
[2018-06-12] MEDS: MONTELUKAST 10 MG TABLET PO (19:28)
[2018-06-12] MEDS: METOPROLOL ER 25 MG TABLET 12.5 MG PO (19:29)
--- NOTE | 2018-06-12 20:04 | PC.NURSE ---
Evening Shift Note by Lesly Bowie, Oil Pumper. Patient gets out of bed when she needs to use the bathroom without using the call light for help. Patient has bed alarm on. Bed was left in lowest position. Patient used bedside commode with this student nurse and primary nurse, Aba, help. Patient required to be reminded to hold onto the bedside commode handles when lowering herself. Patient was reminded by primary nurse, Aba, to use call light when she needs to use the bathroom.
--- NOTE | 2018-06-12 21:42 | PC.NURSE ---
Evening Shift Pt was asleep and did not want to wake her up to give her 2100 meds-which were both stool softeners. Will pass on to next shift to try and give her the meds when she wakes next. Daughter was in to visit, pt was more alert today. Pt was continent during this shift. Bed alarm on.
[2018-06-12] MEDS: SODIUM CHLORIDE 0.9% FLUSH 10 ML IV (21:45)
[2018-06-13] VITALS: BP 127/74; PULSE 80; RESP 18; TEMP 36.4; O2SAT 99
[2018-06-13 04:06] VITALS: BP 128/70; PULSE 68; RESP 18; TEMP 36.6; O2SAT 98
--- NOTE | 2018-06-13 05:05 | PC.NURSE ---
Patient remains impulsive. Door and curtain open when no one in room. Frequent checks on patient, Can speak name, forgot birthday and laughed about that. Pleasant. Able to make needs known. Asked fr warm blanket for comfort. IV wrapped in coban , can fit my large finger under dressing with no problem. Patient stated it does not hurt her. 2 PA for safety to get patient to B[facility]. Had BM this shift.
[2018-06-13 06:42] LABS: Add Manual Diff / Slide Review NO; Basophils Absolute Auto 0 /uL (0-100); Basophils Percent Auto 0.7 % (0-2); Eosinophils Absolute Auto 200 /uL (0-450); Eosinophils Percent Auto 5.9 % (2-4); Hematocrit 30.7 % (36-46); Hemoglobin 10.5 g/dL (12.0-16.0); Lymphocytes Absolute Auto 1300 /uL (1100-4500); Lymphocytes Percent Auto 30.8 % (25-40); Mean Corpuscular HGB Conc 34.1 % (30-36); Mean Corpuscular Hemoglobin 31.9 PG (26-34); Mean Corpuscular Volume 93.5 fL (80-100); Monocytes Absolute Auto 300 /uL (0-900); Monocytes Percent Auto 8.3 % (3-14); Neutrophils Absolute Auto 2200 /uL (1500-7000); Neutrophils Percent Auto 54.3 % (50-75); Platelet Count 146 X10^3/uL (150-400); Red Blood Cell Count 3.28 X10^6/uL (4.0-5.2); Red Cell Distribution Width 14.1 % (11.6-14.8); White Blood Cell Count 4.1 X10^3/uL (4.5-11.0)
[2018-06-13 06:54] LABS: Blood Urea Nitrogen 22 mg/dL (7-17); Calcium 8.9 mg/dL (8.4-10.2); Carbon Dioxide 23 mmol/L (22-32); Chloride 110 mmol/L (98-107); Estimated Glomerular Filt Rate 47.6 mL/min (>60); Glucose 100 mg/dL (80-110); HEMOLYSIS < 15 (0-50); Potassium 3.9 mmol/L (3.4-5.1); Sodium 138 mmol/L (137-145)
[2018-06-13 07:03] LABS: INR 2.6 (0.9-1.3); Prothrombin Time 30.8 SECONDS (10.1-12.7)
[2018-06-13 07:45] VITALS: BP 123/81; BP 136/76; BP 141/83; PULSE 64; PULSE 74; PULSE 75; RESP 16; O2SAT 97
[2018-06-13 07:49] VITALS: O2SAT 98
[2018-06-13] MEDS: DEXTROSE 5% WATER 1,000 ML 100 ML IV (08:21)
[2018-06-13] MEDS: levoFLOXacin 250 MG TABLET 750 MG PO (08:51)
[2018-06-13] MEDS: DOCUSATE ORAL LIQUID 100 MG/10 ML UDC PO (08:51)
--- NOTE | 2018-06-13 09:29 | ST.IPDYTX ---
Care Team Visit Care Team Role Provider Type Americo Clements MD Primary Care Provider Physician Specialty: Internal Medicine Address: [address] [place] [address], [id number] Email: Davina Alejandro DO Emergency Provider Physician Specialty: Emergency Medicine Address: [address] [place] [address] Email: Denise Leslie MD Admit Provider Physician Attending Provider Specialty: Internal Medicine Address: [address] [place] [address] Email: [email or web address] Dysphagia Treatment [employer] Dysphagia Treatment Start: 06/10/18 16:31 Freq: Status: Active Protocol: Document 06/13/18 09:16 MRM (Rec: 06/13/18 09:29 MRM [id number]) Dysphagia Treatment Session Time Visit Start Time 08:45 Visit Stop Time 09:00 Total Visit Minutes 15 Setting Assessment Location Acute Care Visit Type Note Type Treatment Note Next Note Type Next Note Type Treatment Note Patient Information Identification Type Name Other Subjective Observations Patient awake and alert, sitting up in bed with daughter present. Patient self -feeding breakfast. Dr Frank present for morning round. RN, Maryan, present for administration of medication. Patient improved in cognitive function today. Able to communicate in S[place] with staff. However, she continues to present with some confusion and have difficulty performing new tasks (ex: difficulty following directions to swallow pill whole in applesauce). Treatment Liquids Trialed Thin Solids Trialed Dysphagia Mechanical Administration Type Cup Single Sip Straw Self-Feeding Oral Strategies Upright at 90 degrees Controlled Bite/Sip Size Pharyngeal Strategies Sitting Upright (90 deg) Small Bites and Sips Alternate Liquids/Solids Treatment Activities Patient tolerated dysphagia mechanical textures and thin liquids via cup and straw. No overt s/s of aspiraiton observed throughout treatment. No oral residue observed with trials of oatmeal or banana. Patient trialed whole pill in applesauce. She had difficulty following directions to swallow the pill whole in applesauce and attempted to chew the pill, then expectorated it. RN provided whole pill with water, and patient was able to swallow both the pill and the water without difficulty. No overt s /s of aspiration observed with pill+water via straw. Patient's daughter remarked that the patient is able to swallow pills whole with thin liquid at home. At this time, recommend upgrade mediation administration to whole in water, as patient is able to demonstrate improved tolerance of this. Continue current diet. Assessment Patient Response to Treatment Excellent Rehab Potential Excellent Assessment of Improvement Patient improving in tolerance of PO. Able to safely tolerate thin liquids with whole pill one at a time. Recommend continue soft diet for ease in mastication. Continue thin liquids. Please check oral cavity for residue after administration of pills to ensure clearance. Diet Recommendations Recommendations Continue Current Diet Liquids Order Thin Diet Order Dysphagia Mechanical Medication Recommendations As Tolerated Whole Comments One at a time, whole in water Additional Dietary Needs Encourage to Self-Feed Aspiration Precautions Recommended Precautions Upright at 90 Degrees Alternate Liquids/Solids Additional Precautions Check mouth after medication administration to ensure no pocketing Treatment Plan Placement Recommendation after Discharge Snf Facility Appropriate for Continued Therapy Yes Therapy Recommendations Ongoing assessment for diet upgrade Dysphagia Goals Tolerate safest, least restrictive diet without overt s/s of aspiration.
--- NOTE | 2018-06-13 09:52 | PT.IPTN ---
Current Diagnoses Toxic encephalopathy (06/08/18) Altered mental status, unspecified (06/08/18) Other termite treater (current) drug therapy (06/08/18) Physical Therapy Treatment Note M2 PT-IP Current Condition Start: 06/08/18 15:49 Freq: NEEDED Status: Active Protocol: Document 06/08/18 14:50 RCC (Rec: 06/08/18 16:02 RCC [id number]) Physical Therapy Current Condition Current Condition Evaluation Date 06/08/18 Treatment Diagnosis encephalopathy, impaired activity tolerance and mobility M3 PT-IP Subjective Start: 06/08/18 15:49 Freq: NEEDED Status: Active Protocol: Document 06/13/18 09:22 LJ (Rec: 06/13/18 09:52 LJ [email or web address]) Subjective Physical Therapy Visit Type Type Treatment Note Visit Start Time 09:21 Visit Stop Time 09:44 Total Visit Minutes 23 Physical Therapy Visit Comments Patient Comments Pt alert today. Has been up toileting with nursing. Just returned to bed but willing to get up and ambulate M4 PT-IP Mobility and Gait Start: 06/08/18 15:49 Freq: NEEDED Status: Active Protocol: Document 06/13/18 09:22 LJ (Rec: 06/13/18 09:52 LJ [email or web address]) PT-Bed Mobility Assessment Rolling Type of Rolling Roll to Right Level of Assist Minimal Assistance Supine to Sit Supine to Sit Minimal Assistance Head of Bed Elevated Sit to Supine Sit to Supine Minimal Assistance Scooting Scooting to Edge of Bed Standby Assistance Scooting Up and Down in Bed Minimal Assistance PT-Transfer Assessment Sit to and From Stand Sit to and from Stand Contact Guard Assistance Equipment Transfer Assistive Device Gait Belt Orthotic/Prosthetic Devices or Brace: No Transfers Transfer Destination Bed Transfer Technique Stand Step Pivot Transfer Ability Level of Assist Contact Guard Assistance Use of Upper Extremities Comments Mobility Comments Pt SBA for most mobility requiring Álvaro for scooting up in bed and getting to middle of bed. No c/o dizziness. Gait Assessment Gait Gait Assistance Required: Contact Guard Assist Distance (Feet) 150 Able to Maintain Weight Bearing Status Yes During Gait Assistive Devices Assistive Device Gait Belt Orthotic/Prosthetic Devices or Brace: No Factors Limiting Gait Function Factors Limiting Gait Function Decreased Activity Tolerance Decreased Strength Difficulty Following Directions Poor Balance Poor Safety Awareness Comments Gait Comments Pt ambulates with very narrow LILIA requiring cues to widen the gait pattern to avoid tripping. No LOB. Pt fatigued and requested to return to bed . M5 PT-IP Objective Assessments Start: 06/08/18 15:49 Freq: NEEDED Status: Active Protocol: Document 06/08/18 14:50 RCC (Rec: 06/08/18 16:02 RCC [id number]) Orientation Orientation/Cognition Level of Alertness Confusional State Comments answers to name but otherwise unable to verbalize much Strength Comments Strength Comments unable to assess d/t cognitive impairment Sensation Assessment Comments Sensation Comments unable to assess d/t cognitive impairment M6 PT-IP Treatment Start: 06/08/18 15:49 Freq: NEEDED Status: Active Protocol: Document 06/13/18 09:22 LJ (Rec: 06/13/18 09:52 LJ [email or web address]) Physical Therapy Treatment Education Education Provided Safety M7 PT-IP Assessment and Plan Start: 06/08/18 15:49 Freq: NEEDED Status: Active Protocol: Document 06/13/18 09:22 LJ (Rec: 06/13/18 09:52 LJ [email or web address]) PT Summary Assessment and Plan Summary Impairments Strength Balance Cognition Bed Mobility Transfers Gait Activity Tolerance Assessment Summary Pt much clearer today. Increased stamina for ambulation. Understanding and reacting appropriately to cues and questions. Recommendations To Nursing Amount of Assist Needed 1 Person Assist Discharge Recommendations PT Discharge Recommendations SNF Rehab
--- NOTE | 2018-06-13 11:21 | PM.DS.1 ---
History of Present Illness Date Patient Seen: 06/13/18 Time Patient Seen: 11:22 Chief complaint: thinks stroke Narrative: 83-year-old female with past medical history of dementia, bipolar affective disorder on lithium, chronic atrial fibrillation, who presented to emergency department with altered mental status. As per daughter patient was in her usual state of health the evening prior to admission. She was able to ambulate on her own without difficulties and was fairly verbal. However, the morning of admission, patient's daughter found her to be standing over sink with running water. She found stool in her mother's bedroom. At that time patient was nonverbal and confused. Shortly after patient became very weak, with inability to get out of chair. There was no noted fever or chills, nausea or vomiting, any complaints of pain. Discharge Providers Date of admission: 06/08/18 10:58 Discharge Date: 06/13/18 Primary care physician: Americo Clements MD Consults: 06/08/18 14:06 Consult to Occupational Therapy Evaluate & Treat Comment: Physician Instructions: Evaluate and treat Consult to Physical Therapy Evaluate & Treat Comment: Physician Instructions: Evaluate and Treat 06/08/18 14:07 Consult to Pharmacy Routine Comment: manage coumadin 06/10/18 11:48 Consult to Speech Therapy Evaluate & Treat Comment: aspiration?? 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 CT of the head was unremarkable. Chest x-ray was negative for acute cardiopulmonary disease. Nevertheless, patient had difficulty following commands and continued to be confused. Therefore, patient was admitted to the hospital for further evaluation of acute encephalopathy.\ Once admitted, repeat chest x-ray was done which showed right upper lobe radiopacities. Viral respiratory PCR panel was positive for metapneumovirus. Repeat urinalysis was positive for infection. Patient was started on ceftriaxone and azithromycin IV to cover both the UTI and the pneumonia. She was continued on IV fluids at 100 cc an hour. Initially, patient had trouble swallowing and working with physical therapy. However, as the time went on patient became stronger and was able to follow commands with physical therapy and eventually ambulate. She passed the swallow evaluation and transition to normal diet by the day of the discharge. Patient's mentation has slowly returned, and by the time she was discharged she was back to baseline and communicative. The day prior to discharge patient was switched to Levaquin 750 mg p.o. daily, which she is to continue until June 17, 2018. The day before discharge, patient was noted to be orthostatic with heart rate increase to 130-140s with ambulation. Patient was given 500 cc IV fluid bolus and continued on IV fluids which rehydrated patient properly and resolved her orthostatic hypotension and tachycardia. Her blood pressure medication metoprolol was decreased down to 12.5 mg p.o. daily. While patient was admitted, her Coumadin was restarted for atrial fibrillation, but at a different dose than home regimen. Therefore patient's INR on June 11 came back at 5.4. Coumadin was held for 3 days and repeat INR on the day of the discharge was 2.6. Therefore, Coumadin was restarted Patient was accepted at [facility], where she will be going today. Status at Discharge Functional status at discharge: uses cane/walker Overall status at discharge: patient is progressing back to baseline Time Spent with Patient Greater than 30 minutes Exam Vital Signs (past 8 hours): - 06/13/18 04:06 06/13/18 07:45 06/13/18 07:49 Temperature 97.9 F Pulse Rate 68 64 Pulse Rate [Orthostatic Lying] 64 Pulse Rate [Orthostatic Sitting] 75 Pulse Rate [Orthostatic Standing] 74 Respiratory Rate 18 16 Blood Pressure 128/70 136/76 Blood Pressure [Orthostatic Lying] 136/76 Blood Pressure [Orthostatic Sitting] 141/83 H Blood Pressure [Orthostatic Standing] 123/81 Pulse Oximetry 98 97 98 Fraction of Inspired Oxygen 21 Oxygen Delivery Method Room Air Oxygen Flow Rate 0 Narrative Exam Narrative: General: Elderly female in no acute distress. Significantly hard of hearing. HEENT: Normocephalic, atraumatic. Pupils equal round reactive to light. Tongue fasciculations noted on tongue protrusion. Neck: Supple. No lymphadenopathy or thyromegaly. Cardiovascular: Irregularly irregular without murmurs, rubs, or gallops appreciated. Pulmonary: Coarse breath sounds throughout especially and right upper lung field. Normal respiratory effort with no use of accessory muscles. Abdomen: Soft, bowel sounds present, appears nontender, nondistended. No hepatosplenomegaly or masses appreciated. Extremities: No clubbing, cyanosis, or edema. Skin: Normal temperature, turgor, and texture; no rash, ulcers, or subcutaneous nodules appreciated. Neurological: Cranial nerves grossly intact. Patient is very hard of hearing. Follows commands. Psychiatric: Normal mood. Alert and oriented to person only. Objective Labs Result Diagrams: 06/13/18 05:51 06/13/18 05:51 Labs: Laboratory Results - last 24 hr 06/12/18 06/13/18 06/13/18 12:00 05:51 05:51 WBC 4.1 L RBC 3.28 L Hgb 10.2 L 10.5 L Hct 30.2 L 30.7 L MCV 93.5 MCH 31.9 MCHC 34.1 RDW 14.1 Plt Count 146 L Neut % (Auto) 54.3 Lymph % (Auto) 30.8 [place] % (Auto) 8.3 Eos % (Auto) 5.9 H Baso % (Auto) 0.7 Neut # (Auto) 2200 Lymph # (Auto) 1300 [place] # (Auto) 300 Eos # (Auto) 200 Baso # (Auto) 0 PT INR Sodium 138 Potassium 3.9 Chloride 110 H Carbon Dioxide 23 BUN 22 H Creatinine 1.10 H Estimated GFR 47.6 L BUN/Creatinine Ratio 20.0 Glucose 100 Calcium 8.9 06/13/18 05:51 WBC RBC Hgb Hct MCV MCH MCHC RDW Plt Count Neut % (Auto) Lymph % (Auto) [place] % (Auto) Eos % (Auto) Baso % (Auto) Neut # (Auto) Lymph # (Auto) [place] # (Auto) Eos # (Auto) Baso # (Auto) PT 30.8 H D INR 2.6 H Sodium Potassium Chloride Carbon Dioxide BUN Creatinine Estimated GFR BUN/Creatinine Ratio Glucose Calcium Discharge Plan Discharge Plan Discharge Problem: Toxic metabolic encephalopathy Patient Disposition: SNF Other facility: [facility] Transportation: Cab[facility] I certify the postop hospital usp care is medically necessary on a continuing basis for any conditions for which he/ she received care during this hospitalization.: Yes The receiving facility has agreed to accept transfer and provide medical treatment.: Yes Discharge Med Rec/Prescriptions Prescriptions: New levofloxacin 250 mg Tablet 750 mg PO DAILY Qty: 4 RF: 0 metoprolol succinate 25 mg Tablet Extended Release 24 Hr 12.5 mg PO 1900 Qty: 30 RF: 0 Continued warfarin [Coumadin] 2 mg tablet 2 mg PO QWEEK Qty: 90 RF: 3 lithium carbonate 300 mg capsule 300 mg PO Q DAY Qty: 90 RF: 1 montelukast 10 mg tablet 10 mg PO QPM Qty: 90 RF: 1 Discontinued metoprolol succinate 25 mg tablet extended release 24 hr 25 mg PO DAILY RF: 0 Follow up/Referrals: Americo Clements MD [Primary Care Provider] - Discharge Health Status Precautions: Droplet Provider Discharge Instructions Diet: Low-sodium and Low-cholesterol Liquid consistency: Normal/Thin Food texture: Soft Special Rehabilitation Services Rehab type: Physical therapy and Speech therapy Visit Report/Discharge Packet Stand Alone Forms: Speech Pathology Discharge Discharge Data Primary Care Provider: Americo Clements Attending Provider: Denise Leslie Admit Date/Time: 06/08/18 10:58 Quality VTE Deep Vein Thrombosis/Pulmonary Embolism Present on Admission: No
--- NOTE | 2018-06-13 11:33 | P.DS_ITS ---
History of Present Illness Date Patient Seen: 06/13/18 Time Patient Seen: 11:22 Chief complaint: thinks stroke Narrative: 83-year-old female with past medical history of dementia, bipolar aff ective disorder on lithium, chronic atrial fibrillation, who presented to emergency department with altered mental status. As per daughter patient was in her usual state of health the evening prior to admission. She was able to ambulate on her own without difficulties and was fairly verbal. However, the morning of admission, patient's daughter found her to be standing over sink with running water. She found stool in her mother's bedroom. At that time patient was nonverbal and confused. Shortly after patient became very weak, with inability to get out of chair. There was no noted fever or chills, nausea or vomiting, any complaints of pain. Discharge Providers Date of admission: 06/08/18 10:58 Discharge Date: 06/13/18 Primary care physician: Americo Clements MD Consults: 06/08/18 14:06 Consult to Occupational Therapy Evaluate & Treat Comment: Physician Instructions: Evaluate and treat Consult to Physical Therapy Evaluate & Treat Comment: Physician Instructions: Evaluate and Treat 06/08/18 14:07 Consult to Pharmacy Routine Comment: manage coumadin 06/10/18 11:48 Consult to Speech Therapy Evaluate & Treat Comment: aspiration?? 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 CT of the head was unremarkable. Chest x-ray was negative for acute cardiopulmonary disease. Nevertheless, patient had difficulty following commands and continued to be confused. Therefore, patient was admitted to the hospital for further evaluation of acute encephalopathy.\ Once admitted, repeat chest x-ray was done which showed right upper lobe radiopacities. Viral respiratory PCR panel was positive for metapneumovirus. Repeat urinalysis was positive for infection. Patient was started on ceftriaxone and azithromycin IV to cover both the UTI and the pneumonia. She was continued on IV fluids at 100 cc an hour. Initially, patient had trouble swallowing and working with physical therapy. However, as the time went on patient became stronger and was able to follow commands with physical therapy and eventually ambulate. She passed the swallow evaluation and transition to normal diet by the day of the discharge. Patient's mentation has slowly returned, and by the time she was discharged she was back to baseline and communicative. The day prior to discharge patient was switched to Levaquin 750 mg p.o. daily, which she is to continue until June 17, 2018. The day before discharge, patient was noted to be orthostatic with heart rate increase to 130-140s with ambulation. Patient was given 500 cc IV fluid bolus and continued on IV fluids which rehydrated patient properly and resolved her orthostatic hypotension and tachycardia. Her blood pressure medication metoprol ol was decreased down to 12.5 mg p.o. daily. While patient was admitted, her Coumadin was restarted for atrial fibrillation, but at a different dose than home regimen. Therefore patient's INR on June 11 came back at 5.4. Coumadin was held for 3 days and repeat INR on the day of the discharge was 2.6. Therefore, Coumadin was restarted Patient was accepted at [facility], where she will be going today. Status at Discharge Functional status at discharge: uses cane/walker Overall status at discharge: patient is progressing back to baseline Time Spent with Patient Greater than 30 minutes Exam Vital Signs (past 8 hours): - 06/13/18 04:06 06/13/18 07:45 06/13/18 07:49 Temperature 97.9 F Pulse Rate 68 64 Pulse Rate [Orthostatic Lying] 64 Pulse Rate [Orthostatic Sitting] 75 Pulse Rate [Orthostatic Standing] 74 Respiratory Rate 18 16 Blood Pressure 128/70 136/76 Blood Pressure [Orthostatic Lying] 136/76 Blood Pressure [Orthostatic Sitting] 141/83 H Blood Pressure [Orthostatic Standing] 123/81 Pulse Oximetry 98 97 98 Fraction of Inspired Oxygen 21 Oxygen Delivery Method Room Air Oxygen Flow Rate 0 Narrative Exam Narrative: General: Elderly female in no acute distress. Significantly hard of hearing. HEENT: Normocephalic, atraumatic. Pupils equal round reactive to light. Tongue fasciculations noted on tongue protrusion. Neck: Supple. No lymphadenopathy or thyromegaly. Cardiovascular: Irregularly irregular without murmurs, rubs, or gallops appreciated. Pulmonary: Coarse breath sounds throughout especially and right upper lung field. Normal respiratory effort with no use of accessory muscles. Abdomen: Soft, bowel sounds present, appears nontender, nondistended. No hepa tosplenomegaly or masses appreciated. Extremities: No clubbing, cyanosis, or edema. Skin: Normal temperature, turgor, and texture; no rash, ulcers, or subcutaneous nodules appreciated. Neurological: Cranial nerves grossly intact. Patient is very hard of hearing. Follows commands. Psychiatric: Normal mood. Alert and oriented to person only. Objective Labs Result Diagrams: 06/13/18 05:51 06/13/18 05:51 Labs: Laboratory Results - last 24 hr 06/12/18 06/13/18 06/13/18 12:00 05:51 05:51 WBC 4.1 L RBC 3.28 L Hgb 10.2 L 10.5 L Hct 30.2 L 30.7 L MCV 93.5 MCH 31.9 MCHC 34.1 RDW 14.1 Plt Count 146 L Neut % (Auto) 54.3 Lymph % (Auto) 30.8 [place] % (Auto) 8.3 Eos % (Auto) 5.9 H Baso % (Auto) 0.7 Neut # (Auto) 2200 Lymph # (Auto) 1300 [place] # (Auto) 300 Eos # (Auto) 200 Baso # (Auto) 0 PT INR Sodium 138 Potassium 3.9 Chloride 110 H Carbon Dioxide 23 BUN 22 H Creatinine 1.10 H Estimated GFR 47.6 L BUN/Creatinine Ratio 20.0 Glucose 100 Calcium 8.9 06/13/18 05:51 WBC RBC Hgb Hct MCV MCH MCHC RDW Plt Count Neut % (Auto) Lymph % (Auto) [place] % (Auto) Eos % (Auto) Baso % (Auto) Neut # (Auto) Lymph # (Auto) [place] # (Auto) Eos # (Auto) Baso # (Auto) PT 30.8 H D INR 2.6 H Sodium Potassium Chloride Carbon Dioxide BUN Creatinine Estimated GFR BUN/Creatinine Ratio Glucose Calcium Discharge Plan Discharge Plan Discharge Problem: Toxic metabolic encephalopathy Patient Disposition: SNF Other facility: [facility] Transportation: [facility] I certify the postop hospital residential care is medically necessary on a continuing basis for any conditions for which he/ she received care during this hospitalization.: Yes The receiving facility has agreed to accept transfer and provide medical treatment.: Yes Discharge Med Rec/Prescriptions Prescriptions: New levofloxacin 250 mg Tablet 750 mg PO DAILY Qty: 4 RF: 0 metoprolol succinate 25 mg Tablet Extended Release 24 Hr 12.5 mg PO 1900 Qty: 30 RF: 0 Continued warfarin [Coumadin] 2 mg tablet 2 mg PO QWEEK Qty: 90 RF: 3 lithium carbonate 300 mg capsule 300 mg PO Q DAY Qty: 90 RF: 1 montelukast 10 mg tablet 10 mg PO QPM Qty: 90 RF: 1 Discontinued metoprolol succinate 25 mg tablet extended release 24 hr 25 mg PO DAILY RF: 0 Follow up/Referrals: Americo Clements MD [Primary Care Provider] - Discharge Health Status Precautions: Droplet Provider Discharge Instructions Diet: Low-sodium and Low-cholesterol Liquid consistency: Normal/Thin Food texture: Soft Special Rehabilitation Services Rehab type: Physical therapy and Speech therapy Visit Report/Discharge Packet Stand Alone Forms: Speech Pathology Discharge Discharge Data Primary Care Provider: Americo Clements Attending Provider: Denise Leslie Admit Date/Time: 06/08/18 10:58 Quality VTE Deep Vein Thrombosis/Pulmonary Embolism Present on Admission: No
[2018-06-13 11:48] VITALS: BP 115/70; PULSE 61; RESP 16; TEMP 36.2; O2SAT 100
--- NOTE | 2018-06-13 12:29 | OT.IP.TRT ---
Current Diagnoses Toxic encephalopathy (06/08/18) Altered mental status, unspecified (06/08/18) Other long term care pharmacist (current) drug therapy (06/08/18) Occupational Therapy Treatment Note M2 OT-IP Current Condition Start: 06/09/18 17:08 Freq: Status: Active Protocol: Document 06/09/18 11:50 [facility] (Rec: 06/09/18 17:46 [facility] [id number]) Occupational Therapy Current Condition Current Condition Evaluation Date 06/09/18 Treatment Diagnosis Increased confusion, weakness Diagnosis Onset Date 06/08/18 M3 OT- IP Subjective and Pain Start: 06/09/18 17:08 Freq: Status: Active Protocol: Document 06/13/18 12:17 [facility] (Rec: 06/13/18 12:28 [facility] [id number]) OT- Subjective Occupational Therapy Visit Type Type Treatment Note Visit Start Time 11:45 Visit Stop Time 12:12 Total Visit Minutes 27 Occupational Therapy Visit Comments Patient Comments Pt agreeable to shower. OT Pain Assessment Pain When Pain Assessed At Rest Pain Present Pain Present Denied Pain M4 OT- IP ADL's Start: 06/09/18 17:08 Freq: Status: Active Protocol: Document 06/13/18 12:17 [facility] (Rec: 06/13/18 12:28 [facility] [id number]) OT ADL-Dressing General Eval Lower Body Dressing Ability Moderate Assistance Areas Needing Assistance Underpants/Brief Socks Comments OT Dressing Comments Pt needing assist for brief and socks as trying to gil/ doff brief while standing. OT ADL-Toileting General Evaluation Toileting Ability Standby Assistance Comments OT Toileting Comments Pt able to appropriately wipe after urinating, SBA for safety and completeness for sequencing. OT ADL-Bathing Bathing Type Bathing Type Shower General Evaluation Bathing Ability Moderate Assistance Areas Needing Assistance Retrieving/Setting Up Items Wash/Dry Back Wash/Dry Lower Extremities Comments OT Bathing Comments Pt did not want to wash her hair, but able to assist to wash her chest, arms, perineal and upper legs. Pt needing vc for completeness for sequencing and safety. M5 OT- IP IADL's Start: 06/09/18 17:08 Freq: Status: Active Protocol: Document 06/09/18 11:50 [facility] (Rec: 06/09/18 17:46 [facility] [id number]) OT-Instrumental Activities of Daily Living Medication Management Medication Management Caregiver Administers Money Management Money Management Caregiver Provides Assistance Meal Preparation Meal Preparation Caregiver Provides Assist Driving Driving Caregiver Provides Assist M6 OT- IP Functional Cognition Start: 06/09/18 17:08 Freq: Status: Active Protocol: Document 06/13/18 12:17 [facility] (Rec: 06/13/18 12:28 [facility] [id number]) Cognitive Factors Limiting Selfcare Function Cognitive Ability Level of Alertness Alert Patient Orientation Name Attention Span Ability Capable of Focused Attention Unable to Sustain Attention Ability to Follow Commands Able to Follow One Step Commands Memory Description Immediate Impaired Short Term Impaired Safety Awareness Decreased Recall of Precautions Decreased Ability to Apply Precautions Problem Solving Ability Unable to Identify Errors Needs Assist to Identify Solutions Executive Function Ability Unable to Organize Plans Unable to Remember Details Cognitive Comments Cognitive Assessment Comments Pt able to make needs know , needing MOD vc for completeness, sequencing, and safety for showering. M7 OT- IP Mobility and Balance Start: 06/09/18 17:08 Freq: Status: Active Protocol: Document 06/13/18 12:17 [facility] (Rec: 06/13/18 12:28 [facility] [id number]) OT- Bed Mobility Assessment Rolling Type of Rolling Roll to Right Supine to Sit Supine to Sit Assist Standby Assistance Sit to Supine Sit to Supine Assist Minimal Assistance OT-Transfer Assessment Sit to and From Stand Sit to and from Stand Contact Guard Assistance Transfers Transfer Ability Contact Guard Assistance Minimal Assistance Technique Transfer Destination Bed Shower Stall Toilet Devices Transfer Assistive Devices Gait Belt Comments Mobility Comments Pt needing CGA for safety due to impulsivity. Pt wanting to get into the bed by putting knee on the bed and needing CY for balance, pt not understanding to just turn around to sit on the bed first . Pt needing CY for stepping over shower threshold. OT- Balance Assessment Sitting Balance and Reactions Static Sitting Balance Ability Normal Dynamic Sitting Balance Ability Good Standing Balance and Reactions Static Standing Balance Ability Fair M8 OT- IP Objective Assessments Start: 06/09/18 17:08 Freq: Status: Active Protocol: Document 06/09/18 11:50 [facility] (Rec: 06/09/18 17:46 [facility] [id number]) OT Strength Comments Strength Comments Pt per task of eating and transfers, strength at least 3 -/5 but unable to formally assess. M9 OT- IP Assessment and Plan Start: 06/09/18 17:08 Freq: Status: Active Protocol: Document 06/13/18 12:17 [facility] (Rec: 06/13/18 12:28 [facility] [id number]) OT Summary Assessment and Plan Potential Rehabilitation Potential Good Analytic Complexity at Evaluation Low Summary OT Impairments Strength Balance Functional Cognition Functional Mobility Self-Feeding Grooming Dressing Toileting Bathing Toilet Transfers Shower Transfers Progress Towards Goals Progressing Toward Goals Assessment Summary Pt looking to go to skilled rehab today to continue to work on increased activity tolerance, strength and get back to prior level of care. Goals Self-Feeding Goal Standby Assistance Grooming Goal Standby Assistance Dressing Goal Minimal Assistance Toileting Goal Standby Assistance Bathing Goal Minimal Assistance Toilet Transfer Goal Standby Assistance Shower Transfer Goal Contact Guard Assistance Days to Meet Goals 1 Frequency of Treatment Frequency Of Treatment Once a Day Treatment Plan OT Treatment Plan ADL Training Functional Cognition Training Functional Mobility Patient/Family Education Discharge Planning Discharge Recommendations OT Discharge Recommendations [facility] Rehab
--- NOTE | 2018-06-13 13:40 | PC.NURSE ---
Day shift: Pt's daughter will be taking Hisako to the SNF today. Expect her to leave the unit at approx 1400.
--- NOTE | 2018-06-13 13:49 | PC.NURSE ---
Day shift: Pt left unit at approx 1400 with her daughter. Daughter has SNF paperwork. Pt has all personal belongings.
--- NOTE | 2018-06-13 16:07 | CM.DPNOTE ---
DCP Efforts and Saturday: Contacted [facility] , no beds available. Notified dtr Kalyn and she requested [facility] be attempted for DC Saturday. Contacted [facility] and faxed needed clinical information. Pt was accepted and Kalyn, dtr, agreeable to this plan. IMM reviewed and signed. Faxed DC ppk, completed by Dr Frank, including PAS[facility], to [facility]. Dtr Kalyn wanted to transport pt in pov. Alerted [facility] and SINDY Steinberg. P: DC today to [facility] [place] via pov. HARDY Jon
--- NOTE | 2018-06-16 16:03 | CM.DPNOTE ---
DCP/continued after patient discharge: Received phone call from daughter/Kalyn this AM re: difficulty at home. Per daughter, they took patient to [facility] on Saturday06-13-18. Daughter reports that patient could not reach the call light and daughter was scared to leave her there. Daughter continues to want patient to go to SNF. Daughter reports that she toured [facility], [facility], and [facility]. If possible daughter requesting patient go to [facility]. Because patient no longer at [facility] ELEMENTARY EDUCATION TUTOR reports that she will call PCP and Angie at [facility] to facilitate. Placed call to Angie and she reports that she may have bed today. She was provided with permission to review patient's record from admit last week. Daughter aware and agreeable. Angie reports that she needs new orders for admit. ELEMENTARY EDUCATION TUTOR placed call to patient's PCP/Dr. Clements, spoke with his RN/Natalie. Message sent to MD and it was agreed that patient would benefit from SNF. Patient also had office visit today for lab draws. Therefore, patient seen in office. A RN/Natalie and Angie requested ELEMENTARY EDUCATION TUTOR complete PASRR because it did not come back with her from [facility]. ELEMENTARY EDUCATION TUTOR completed hospital exempt PASRR for bipolar and dementia (both controlled) per notes on 06-13-18. ELEMENTARY EDUCATION TUTOR faxed to A for signature. RN/Natalie reports that she will take care of it. P: Anticipate that patient will be accepted at [facility] for continued rehabilitation. Daughter attempted placement at [facility] but did not feel that this facility was good fit therefore, patient taken home for the weekend with request from daughter for CM team and A to help with placement at [facility] today. HARDY Dunn
== END 2018-06-13 14:38 | DRG 70 ==
LOC: ED 10:56 → AC 11:17
PROVIDERS: Internal Medicine; Nurse Practitioner Adult Health; Admitting Provider Internal Medicine; Emergency Provider Emergency Medicine; PCP Student in an Organized Health Care Education/Training Program; Visit Provider Internal Medicine
DX: G93.41 Metabolic encephalopathy (principal); J12.3 Human metapneumovirus pneumonia; J15.9 Unspecified bacterial pneumonia; N39.0 Urinary tract infection, site not specified; I47.1 Supraventricular tachycardia; E44.0 Moderate protein-calorie malnutrition; Z68.1 Body mass index [BMI] 19.9 or less, adult; F03.90 Unspecified dementia, unspecified severity, without behavioral disturbance, psychotic disturbance, mood disturbance, and anxiety; F31.9 Bipolar disorder, unspecified; B96.20 Unspecified Escherichia coli [E. coli] as the cause of diseases classified elsewhere; Z95.0 Presence of cardiac pacemaker; I48.2 Chronic atrial fibrillation; Z79.01 Long term (current) use of anticoagulants; N18.2 Chronic kidney disease, stage 2 (mild); G25.89 Other specified extrapyramidal and movement disorders
CPT/HCPCS: 36415; 36591; 70450; 71045; 71046; 80048; 80053; 80178; 81001; 82550; 82962; 83605; 83735; 83880; 84145; 84146; 84443; 84484; 85014; 85018; 85025; 85610; 85730; 87040; 87077; 87086; 87186; 87400; 87633; 92526; 92610; 93005; 93010; 94640; 94760; 96360; 96361; 97110; 97116; 97162; 97165; 97530; 97535; 99285; 99291; J0696; J7614